=== PATIENT | male | born 1945 | race Caucasian/White ===

== ENCOUNTER 2024-09-15 16:39 | Inpatient (IN) ==
[2024-09-15 17:02] LABS: ABG O2 HGB 92.8 % (95-100); BEecf -14.6 (-2.0-3.0); COHb 1.9 (0.5-1.5); HCO3 11.8 (21-28); MetHb 0.4 (0-1.5); TCO2 12.5 (19-24); sO2 91.4 % (94-98); tHb 11.2 g/dl (11.7-17.4)
--- NOTE | 2024-09-15 17:02 | ED.PDOC ---
General ED Provider: Dr. ENE LUU DO Chief Complaint: Shortness of Air Stated Complaint: Patient is a frail 79-year-old male who was dropped off by family without any history without any oxygen and were given instructions to admit the patient to a swing bed or to hospice and they will be back tomorrow. Patient complains of back pain and is using his accessory muscles to breathe oxygen. Patient is at room air at 69 PaO2 it is unclear if this is accurate so an arterial blood gas will be required. Patient lives at home but was recently discharged from hospital in August and has a history of prostate cancer. We recently found out that the patient had fallen in front of the son-in-law therefore x-rays will also be ordered during this evaluation. Patient has a significant history of an ischemic stroke in 2021. Patient also has COPD, he is malnourished, emaciated, history of an elevated PSA but refused to follow-up. Possible prostate cancer and possibly found a pulmonary nodule. Also there is a nodule on the anterior fifth rib could possibly be metastatic lesion. Time Seen by Provider: 09/15/24 16:53 Mode of Arrival: Wheelchair Information Source: Patient, Family and EMT Exam Limitations: Physical impairment (Patient is short of breath and has problems saying more than a few words) Primary Care Provider: YAIR CRAFT PA-C Nursing and Triage Documentation Reviewed and Agree: Yes Does Patient Take Opioids?: No Is Patient Opioid Naive?: Yes What is Opioid Naive?: *Opioid Naive implies the patient is not already taking opioids or not chronically receiving opioids on a daily basis. *PRN dosing is not "usually" associated with tolerance. *Patients are at higher risk of over-sedation and aspiration. Is Patient Opioid Tolerant?: No What is Opioid Tolerant?: *Opioid Tolerance implies less than the expected response to an opioid. *Acquired tolerance is defined by the patient taking 60mg of oral morphine daily (or equianalgesic dose of another opioid) for 1 week or more. *Often associated with chronic pain. *May take more than usual dose to achieve desired pain control. 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 Not taking as of 08/26/23. No e/o fluid overload. Z86.39 - Personal history of other endocrine, nutritional and metabolic disease (ICD-10) History of fracture of right hip (~11/2022) refused surgery Z87.81 - Personal history of (healed) traumatic fracture (ICD-10) Ischemic stroke (~09/17/21) 09/17/21: CVA right basal ganglia w/involvement of right jimenes radiata and right internal capsule, per records from OSH; 08/26/23 - referral to neurology I63.9 - Cerebral infarction, unspecified (ICD-10) Family History FATHER Prostate cancer Mother Heart murmur Social History Smoking and tobacco status: Former smoker Alcohol intake: former Substance use type: marijuana Ellie/mormon: [employer] Seatbelt use: always Drives intoxicated or rides with intoxicated 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 Water heater temperature set < 120 degrees: Yes Working smoke detector in home: Yes Surgical History History of AAA (abdominal aortic aneurysm) repair (~12/09/22) infrarenal saccular AAA Z98.890 - Other specified postprocedural states (ICD-10) H/O eye surgery Cataract surgery - right Z98.890 - Other specified postprocedural states (ICD-10) H/O total cystectomy Z90.6 - Acquired absence of other parts of urinary tract (ICD-10) History of appendectomy Z90.49 - Acquired absence of other specified parts of digestive tract (ICD- 10) Physical Exam Physical Exam Appearance: Reports Ill-appearing Ill-appearing: Severe Pain Distress: Moderate Eyes: Reports JOHN, EOMI and Conjunctiva clear ENT: Reports Nose normal and Oropharynx normal Neck: Supple Respiratory: Reports Breath sounds clear, Breath sounds equal (Utilizing accessory muscles while taking deep inspiratory breaths) and Other (ABG shows hypoxemia with pO2 of 69 at room air and acidosis of 7.30 pH somewhat compensated. Patient using accessory muscles with deep inspiratory effort) Cardiovascular: Reports RRR and Pulses normal GI/: Reports Not Examined (History of elevated PSA but not investigated or treated due to patient's request) Musculoskeletal: Reports Normal strength (Symmetrical muscle wasting with emaciated skin and poor skin turgor), ROM intact and Other (Complains of diffuse pain of lumbar spine but no step-offs noted no bruising noted) Skin: Reports Dry (Poor skin turgor) and Other (Poor skin turgor with tenting due to volume depletion) Neurological: Reports Sensation intact, Motor intact, Cranial nerves intact, Alert and Oriented Psychiatric: Reports Affect appropriate Course Course 09/15/24 17:05 09/15/24 17:05 Orders, Labs, Meds: Lab Review 09/15/24 09/15/24 09/15/24 16:59 17:05 17:41 WBC 13.31 H RBC 3.43 L Hgb 11.7 L Hct 37.5 L MCV 109.3 H MCH 34.1 H MCHC 31.2 L RDW Coeff of Fermin 14.0 Plt Count 431 Immature Gran % (Auto) 1.7 Neut % (Auto) 73.6 Lymph % (Auto) 16.8 Tift % (Auto) 6.8 Eos % (Auto) 0.5 Baso % (Auto) 0.6 Neut # (Auto) 9.8 H Lymph # (Auto) 2.2 Tift # (Auto) 0.9 Eos # (Auto) 0.1 Baso # (Auto) 0.1 Immature Gran # (Auto) 0.2 Puncture Site L brach Base Excess -14.6 L O2 Saturation 91.4 L ABG pH 7.30 L ABG pCO2 24.0 L ABG pO2 69.0 L ABG HCO3 11.8 L ABG Total CO2 12.5 L Hemoglobin 0.4 Oxyhemoglobin 92.8 L Carboxyhemoglobin 1.9 H Total Hemoglobin 11.2 L FiO2 % 21.0 Sodium 139.2 Potassium 5.18 H Chloride 102.1 Carbon Dioxide 14.3 L Anion Gap 27.98 BUN 26.0 H Creatinine 1.33 H Estimated GFR (MDRD) 52.00 BUN/Creatinine Ratio 19.54 Glucose 153.0 H Lactic Acid 8.45 H Calcium 9.34 Total Creatine Kinase 61.8 Troponin I < 0.012 NT-Pro-B Natriuret Pep 1050 H D-Dimer 4150.21 H Influ A Molecular Assay Negative by naat Influ B Molecular Assay Negative by naat SARS CoV-2 RNA Rapid ARIADNA Negative Orders Category Date Time Status ADMIT OBSERVATION [PLACE PATIENT OBSERVATION] .TO ADMISSION 09/15/24 19:47 Active MEDSURG (NON-MONITORED BED) ABG DRAW REQUEST Stat CARDIO 09/15/24 16:53 Completed EKG-(ED ONLY) Stat CARDIO 09/15/24 17:04 Completed ED APPLY O2 .ONCE EMERGENCY 09/15/24 17:11 Active ED FINISHING RANGE OPERATOR APPLIED .ONCE EMERGENCY 09/15/24 17:11 Active ABG COOX Stat LAB 09/15/24 16:59 Completed BMP [BASIC METABOLIC PANEL] Stat LAB 09/15/24 17:05 Completed CBC W/ AUTO DIFF Stat LAB 09/15/24 17:05 Completed CPK [CREATINE KINASE] Stat LAB 09/15/24 17:05 Completed D-DIMER Stat LAB 09/15/24 17:05 Completed FLU A/B MOLECULAR Stat LAB 09/15/24 17:41 Completed LACTIC ACID Stat LAB 09/15/24 17:05 Completed NT-PROBNP(ED) Stat LAB 09/15/24 17:05 Completed SARS COV-2 RNA RAPID ARIADNA Stat LAB 09/15/24 17:41 Completed TROPONIN I Stat LAB 09/15/24 17:05 Completed UA [URINALYSIS C & S IF INDICATED] Stat LAB 09/15/24 17:06 Uncollected UA [URINALYSIS C & S IF INDICATED] Stat LAB 09/15/24 17:15 Uncollected Ceftriaxone 1 gm Vial [Rocephin 1 gm Vial] Meds 09/15/24 19:43 Discontinued 1 gm IVP ONCE ONE Sodium Chloride 0.9% [Sodium Chloride] 1,000 ml Meds 09/15/24 17:06 Discontinued IV BOLUS CERVICAL SPINE, 2 OR 3 VIEWS Stat RADS 09/15/24 18:22 Completed CHEST, 1V AP ONLY Stat RADS 09/15/24 16:57 Completed LUMBAR SPINE, 2 OR 3 VIEWS Stat RADS 09/15/24 18:22 Completed Medications Discontinued Medications Generic Name Dose Route Start Last Admin Trade Name Kai PRN Reason Stop Dose Admin Ceftriaxone Sodium 1 gm 09/15/24 19:43 09/15/24 19:54 Ceftriaxone 1 Gm Vial IVP 09/15/24 19:44 1 gm ONCE ONE Administration Sodium Chloride 1,000 mls @ 1,000 mls/hr 09/15/24 17:06 09/15/24 18:38 Sodium Chloride IV 09/15/24 18:05 Infused BOLUS ONE Infusion Vital Signs: Temp Pulse Resp BP Pulse Ox O2 Flow Rate 09/15/24 17:10 3 09/15/24 16:46 96.9 F L 129 H 26 H 113/70 70 L terpreter: Yelena Zheng, ([id number]) Boilermaker'S Assistant: YELENA ZHENG, (MPH) Report Date: 09/15/2024 19:02:00 Report Status: Final Begin of Report Content EXAM: XR CERVICAL SPINE. HISTORY: Neck pain. TECHNIQUE: Three views of the cervical spine. Frontal, lateral, and AP open-mouth odontoid. COMPARISON: None. FINDINGS: There is straightening of the cervical lordosis. There is no fracture. Multilevel degenerative disc disease, most notably in the lower cervical spine. The prevertebral soft tissues are normal. IMPRESSION: 1. No fracture or subluxation. Degenerative disc disease. Electronically Signed By: Yelena Zheng D.O. Signing Date: 2024-09-15 19:02 End of Report Content ======= port Date: 09/15/2024 19:02:00 Report Status: Final Begin of Report Content EXAM: LUMBAR SPINE TWO VIEW. HISTORY: Fall. Pain. COMPARISON: None. FINDINGS/IMPRESSION: Degenerative disc narrowing most prominent L5-S1. Lesser disc space narrowing at L2-3, L3-4 and L4-5. Endovascular stent graft is present over the aorta and iliac arteries. Facet arthropathy is present. No acute fracture. Electronically Signed By: Ibeth Limon M.D. Signing Date: 2024-09-15 19:02 terpreter: Ibeth Limon ([id number]) Boilermaker'S Assistant: IBETH LIMON (LCF) Report Date: 09/15/2024 17:40:00 Report Status: Final Begin of Report Content EXAM: FRONTAL VIEW OF THE CHEST. HISTORY: Shortness of breath. COMPARISON: None. FINDINGS: Lungs are hyperexpanded. Calcified granulomas are present on the right. Nodular like density over the anterior fifth rib which is indeterminate for calcification versus noncalcified nodule. Cardiac silhouette is normal. No organized infiltrate/consolidation. Discharge Plan Discharge Patient Disposition: ADMITTED INPATIENT Discharge Problem: Weight loss, Volume depletion Malnourished Qualifiers: Malnutrition type: protein-calorie malnutrition Protein-calorie malnutrition severity: moderate Qualified Code(s): E44.0 - Moderate protein-calorie malnutrition COPD (chronic obstructive pulmonary disease) Qualifiers: COPD type: COPD with acute exacerbation Qualified Code(s): J44.1 - Chronic obstructive pulmonary disease with (acute) exacerbation Did you review [place] MA[place] for ALL controlled substances?: Not Applicable ED Provider: ENE LUU Condition: Stable Physician Progress Note: This is a 79-year-old male who has been living at home and recently discharged from respite care. He requires oxygen supplementation which she has not been consistent for a year. Is a concern that he had an elevated PSA and never followed with this and now has a pulmonary nodule. Patient also has multiple myeloma. Patient becomes easily exacerbated no congestive heart failure but more of an exacerbation of COPD. His arterial blood gas showed a pH of 7.3 [id number] PO2 of 69 on room air with a bicarb of 11.8. There is a concern if he fell- patient states he did not fall- moves his legs and denies hip pain. So x-ray of his cervical, lumbar, and thoracic spine were done and are negative for any acute fractures or compression fracture or spondylolisthesis. Patient demonstrates chronic osteoarthritis. Patient's respiratory status is improved once IV fluids were administered. Patient will most likely require social psychologist and placement long-term in a correction. Patient is hemodynamically stable. Called the hospitalist Daniel Clark regarding admission for exacerbation of COPD, hypoxemia due to exacerbation of COPD, volume depletion due to dehydration with elevated BUN and creatinine, clinically severe turgor of skin, patient is acidotic due to hypoxemia poorly compensated.Patient is to be admitted to observation.
[2024-09-15 17:17] LABS: BASOPHILS # (AUTO) 0.1 K/uL (0-0.2); BASOPHILS % (AUTO) 0.6 % (0.0-3.0); EOSINOPHILS # (AUTO) 0.1 K/ul (0.0-0.7); EOSINOPHILS % (AUTO) 0.5 % (0.0-7.0); HEMATOCRIT 37.5 % (42.0-52.0); HEMOGLOBIN 11.7 g/dl (14.0-18.0); IMMATURE GRANULOCYTE # (AUTO) 0.2 (0.0-1.0); IMMATURE GRANULOCYTE % (AUTO) 1.7 % (0.0-5.0); LYMPHOCYTES # (AUTO) 2.2 K/uL (0.60-3.4); LYMPHOCYTES % (AUTO) 16.8 (10.0-50.0); MEAN CORPUSCULAR HEMOGLOBIN 34.1 pg (27.0-31.0); MEAN CORPUSCULAR HGB CONC 31.2 (31.8-35.4); MEAN CORPUSCULAR VOLUME 109.3 fl (80.0-94.0); MONOCYTES # (AUTO) 0.9 K/uL (0.4-2.0); MONOCYTES % (AUTO) 6.8 (0-10); NEUTROPHILS # (AUTO) 9.8 K/ul (2.0-6.9); NEUTROPHILS % (AUTO) 73.6 % (42.2-75.2); PLATELET COUNT 431 10^3/uL (140-440); RED BLOOD COUNT 3.43 10^6/ul (4.70-6.10); WHITE BLOOD COUNT 13.31 K/ul (4.2-10.2)
[2024-09-15 17:28] LABS: CALCIUM 9.34 mg/dL (8.4-10.2); CARBON DIOXIDE 14.3 mmol/L (22-30.0); CHLORIDE 102.1 mmol/L (98-107); CREATINE KINASE 61.8 U/L (55-170); CREATININE 1.33 mg/dL (0.60-1.10); POTASSIUM 5.18 mmol/L (3.5-5.1); SODIUM 139.2 mmol/L (134.5-145)
[2024-09-15] MEDS: SODIUM CHLORIDE 1,000 ML IV ONE (17:38)
[2024-09-15 17:40] LABS: TROPONIN I < 0.012 ng/ml (0.0000-0.120)
--- NOTE | 2024-09-15 17:45 | DI ---
EXAM: FRONTAL VIEW OF THE CHEST. HISTORY: Shortness of breath. COMPARISON: None. FINDINGS: Lungs are hyperexpanded. Calcified granulomas are present on the right. Nodular like density over t he anterior fifth rib which is indeterminate for calcification versus noncalcified nodule. Cardiac silhouette is normal. No organized infiltrate/consolidation. No visible effusion or pneumothorax. No acute osseous abnormality. IMPRESSION: 1. Emphysematous changes 2. Nodular opacities on the right at least one which is a granuloma. The second is indeterminate.
[2024-09-15 18:01] LABS: SARS COV-2 RNA RAPID NAAT NEGATIVE (NEGATIVE)
[2024-09-15 18:04] LABS: MOLECULAR FLU A NEGATIVE BY NAAT (NEGATIVE); MOLECULAR FLU B NEGATIVE BY NAAT (NEGATIVE)
--- NOTE | 2024-09-15 19:06 | DI ---
EXAM: XR CERVICAL SPINE. HISTORY: Neck pain. TECHNIQUE: Three views of the cervical spine. Frontal, lateral, and AP open-mouth odontoid. COMPARISON: None. FINDINGS: There is straightening of the cervical lordosis. There is no fracture. Multilevel degenerative disc disease, most notably in the lower cervical spine. The prevertebral soft tissues are normal. IMPRESSION: 1. No fracture or subluxation. Degenerative disc disease.
--- NOTE | 2024-09-15 19:06 | DI ---
EXAM: LUMBAR SPINE TWO VIEW. HISTORY: Fall. Pain. COMPARISON: None. FINDINGS/IMPRESSION: Degenerative disc narrowing most prominent L5-S1. Lesser disc space narrowing at L2-3, L3-4 and L4-5 . Endovascular stent graft is present over the aorta and iliac arteries. Facet arthropathy is prese nt. No acute fracture.
[2024-09-15] MEDS: ROCEPHIN 1 GM VIAL IVP ONE (19:54)
[2024-09-15] MEDS ORDERED: TYLENOL PO PRN (21:54)
[2024-09-15] MEDS: VISIPAQUE 320 MG/ML 100ML IVP ONE (22:15)
[2024-09-15 22:29] VITALS: BMI 13.7
[2024-09-15] MEDS: SODIUM CHLORIDE 1,000 ML IV SCH (23:01)
--- NOTE | 2024-09-15 23:01 | CT ---
EXAM: CTA OF THE PULMONARY ARTERIES WITH CONTRAST TECHNIQUE: CTA of the pulmonary arteries was performed with contrast. 2-D and 3-D reconstructions wer e performed. HISTORY: Shortness of breath. COMPARISON: 09/16/2023. FINDINGS: Pulmonary arteries: No pulmonary embolus detected. Lungs/pleura: Diffuse emphysematous changes. Pulmonary micronodule measuring 7.2 mm in the right low er lobe. Appears stable compared to a previous examination. A smaller micronodule measuring approxi mately 4 mm image 101 is also stable. Subpleural micronodule in the left upper lobe is stable in the interval. No pleural effusion.Atelectasis left lung base. Mediastinum: No adenopathy. Cardiovascular: No pericardial effusion. The ascending thoracic aorta measures up to 3.2 cm. Descend ing aorta is 3 cm. Chest wall/axillae/thoracic inlet: No mass or adenopathy. Imaged upper abdomen: Postoperative change from endovascular stent repair of an infrarenal abdominal aortic aneurysm. Renal cyst on the left. Mildly distended gallbladder. Adrenal hyperplasia bilater ally. Bones: No aggressive osseous lesion identified. IMPRESSION: 1. Emphysematous changes. 2. Stable pulmonary micronodules 3. Negative for pulmonary embolus. 4. Additional chronic changes as above. All CT scans are performed using dose optimization techniques as appropriate to the performed exam an d includes at least one of the following: Automated exposure control, adjustment of the mA and/or kV according to size, and the use of iterative reconstruction technique. All CT scans are performed using dose optimization techniques as appropriate to the performed exam an d include at least one of the following: Automated exposure control, adjustment of the mA and/or kV according t o size, and the use of iterative reconstruction technique.
[2024-09-16] MEDS: DUONEB NEB SCH (00:12)
[2024-09-16 05:42] LABS: BASOPHILS % (AUTO) 0.2 % (0.0-3.0); EOSINOPHILS % (AUTO) 0.1 % (0.0-7.0); HEMATOCRIT 33.6 % (42.0-52.0); IMMATURE GRANULOCYTE # (AUTO) 0.1 (0.0-1.0); IMMATURE GRANULOCYTE % (AUTO) 0.7 % (0.0-5.0); LYMPHOCYTES % (AUTO) 7.9 (10.0-50.0); MEAN CORPUSCULAR HEMOGLOBIN 34.7 pg (27.0-31.0); MEAN CORPUSCULAR HGB CONC 32.7 (31.8-35.4); MONOCYTES # (AUTO) 0.9 K/uL (0.4-2.0); MONOCYTES % (AUTO) 7.3 (0-10); NEUTROPHILS # (AUTO) 10.3 K/ul (2.0-6.9); NEUTROPHILS % (AUTO) 83.8 % (42.2-75.2); PLATELET COUNT 305 10^3/uL (140-440); RED BLOOD COUNT 3.17 10^6/ul (4.70-6.10); WHITE BLOOD COUNT 12.28 K/ul (4.2-10.2)
[2024-09-16 05:44] LABS: BILIRUBIN,URINE Negative (NEGATIVE); CLARITY,URINE Clear (CLEAR); COLOR,URINE Yellow (YELLOW); GLUCOSE, URINE (UA) Negative (NEGATIVE); KETONES,URINE 1+ (NEGATIVE); LEUKOCYTE ESTERASE ,URINE Negative (NEGATIVE); NITRITE,URINE Negative (NEGATIVE); PH,URINE 5.5 (5-9); PROTEIN,URINE 1+ (NEGATIVE); URINE, BLOOD Negative (NEGATIVE); UROBILINOGEN,URINE 0.2 (0.2)
[2024-09-16 06:02] LABS: ALANINE AMINOTRANSFERASE 19.7 U/L (0-50); ALBUMIN 3.95 g/dL (3.5-5.0); ALKALINE PHOSPHATASE 87.3 U/L (56-119); ASPARTATE AMINO TRANSFERASE 34.1 U/L (17-59); BILIRUBIN,TOTAL 0.55 mg/dL (0.2-1.3); BLOOD UREA NITROGEN 31.3 mg/dL (9-20); CALCIUM 8.94 mg/dL (8.4-10.2); CARBON DIOXIDE 18.1 mmol/L (22-30.0); CHLORIDE 103.1 mmol/L (98-107); CREATININE 1.29 mg/dL (0.60-1.10); GLUCOSE 85.7 mg/dL (74-106); POTASSIUM 4.68 mmol/L (3.5-5.1); SODIUM 137.9 mmol/L (134.5-145); TOTAL PROTEIN 7.42 g/dL (6.3-8.2)
[2024-09-16] MEDS: ZITHROMAX PO SCH (08:39)
--- NOTE | 2024-09-16 11:34 | PCM ---
Date of Service Date Seen by Provider: 09/16/24 Time Seen by Provider: 08:45 Admit Day/Time Admission Date: 09/15/24 Reason for Admission Chief Complaint: COPD EXACERBATION Hospital Provider Hospital Provider: BOBBI ORTIZ, [facility] Primary Care Physician Primary Care Physician: YAIR CRAFT PA-C History of Present Illness History of Present Illness: 79 yo male with pmh of CVA, prostate cancer, HLD, COPD, GERD, and macular degeneration presented to the ER for weakness and shortness of breath. Patient reports that he resides at his daughter's house and was taking a shower when he developed sudden onset of weakness, vision changes, and shortness of breath. Also states he had the urge to have a BM. Got out of the shower and was sitting on the toilet, then felt too weak and couldn't breathe. He then got down on all 4 extremities in the floor and this did not help and was unable to get back up. Upon arrival to the ER by EMS, patient was on NRB and O2 sat was found to be in the 70s, HR 126, and Respirations 26. Ddimer was found to be >4000, Creatinine elevated at 1.3 compared to baseline of 0.8-1.1, WBC 13, lactic of 8. Chest xray negative for acute findings. Blood cultures were not obtained, CTA not completed, and CT head not completed. Initially admitted to med/surg observation. Of note, patient reports metastatic prostate cancer but with review of imaging at other facilities unable to find supporting documentation of this. Also reported multiple myeloma but unsure if he has been officially diagnosed with this at this time. Discussed with patient discharge plans due to statements by someone regarding SNF placement. Patient is requesting placement due to family being unable to care for him 01/12. Discussed with rn social work at bedside. Requesting [facility] specificially. Case Discussed With Case Discussed With: Patient's case was discussed with the ER Physicians, Dr. Allen. [facility] Medical History Prostate CA mets to bone C61 - Malignant neoplasm of prostate (ICD-10) CVA (cerebral vascular accident) I63.9 - Cerebral infarction, unspecified (ICD-10) Dysphagia 12/03/22 BALLET TEACHER eval in ICU cleared for normal diet, no dysphagia noted; 08/25/13: s/p cva, declines BALLET TEACHER evaluation, try thickened liquids R13.10 - Dysphagia, unspecified (ICD-10) History of fluid overload (~11/2022) during ICU stay, d/c w/lasix. Not taking as of 08/26/23. No e/o fluid overload. Z86.39 - Personal history of other endocrine, nutritional and metabolic disease (ICD-10) History of fracture of right hip (~11/2022) refused surgery Z87.81 - Personal history of (healed) traumatic fracture (ICD-10) Ischemic stroke (~09/17/21) 09/17/21: CVA right basal ganglia w/involvement of right jimenes radiata and right internal capsule, per records from OSH; 08/26/23 - referral to neurology I63.9 - Cerebral infarction, unspecified (ICD-10) Surgical History History of AAA (abdominal aortic aneurysm) repair (~12/09/22) infrarenal saccular AAA Z98.890 - Other specified postprocedural states (ICD-10) H/O eye surgery Cataract surgery - right Z98.890 - Other specified postprocedural states (ICD-10) H/O total cystectomy Z90.6 - Acquired absence of other parts of urinary tract (ICD-10) History of appendectomy Z90.49 - Acquired absence of other specified parts of digestive tract (ICD-10) Family History FATHER Prostate cancer Mother Heart murmur Social History Smoking and tobacco status: Former smoker Alcohol intake: former Substance use type: marijuana Ellie/restorationism: ORTHODOXY Seatbelt use: always Drives intoxicated or rides with intoxicated lumber driver: No Water heater temperature set < 120 degrees: Yes Working smoke detector in home: Yes Allergies Allergies Allergy/AdvReac Type Severity Reaction Status Date / Time No Known Allergies Allergy Unverified 02/04/24 11:04 Current Medications Home Medications Acetaminophen (Acetaminophen 325 Mg Tablet) 650 mg PO Q4H PRN PRN Reason: Mild Pain Albuterol/Ipratropium (Ipratropium/Albuterol Vial.Neb) 3 ml NEB RTQ6H [facility] Last Admin: 09/16/24 11:28 Dose: 3 ml Azithromycin (Azithromycin 250 Mg Tablet) 500 mg PO DAILY [facility] Stop: 09/19/24 08:59 Last Admin: 09/16/24 08:39 Dose: 500 mg Sodium Chloride (Sodium Chloride) 1,000 mls @ 100 mls/hr IV .Q10H [facility] Last Admin: 09/16/24 07:29 Dose: 100 mls/hr CEFTRIAXONE/D5W 1 GM PREMIX (Rocephin 1 Gm/50 Ml D5w) 1 gm in 50 mls @ 100 mls/hr IV BEDTIME [facility] Stop: 09/19/24 20:59 albuterol sulfate 2.5 mg/3 mL (0.083 %) solution for nebulization 2.5 mg (3 mL) inhalation Q4-6H PRN chronic bronchitis #180 mL 12/15/23 [Rx Confirmed 09/15/24] albuterol sulfate 90 mcg/actuation aerosol inhaler 2 puff inhalation Q4-6H PRN shortness of breath or wheezing #8.5 grams 12/15/23 [Rx Confirmed 09/15/24] atorvastatin 40 mg tablet 20 mg PO QHS 09/15/24 [History Confirmed 09/15/24] budesonide 160 mcg-glycopyr 9 mcg-formot 4.8 mcg/actuation HFA inhaler (Breztri Aerosphere) 2 inh inhalation BID 09/15/24 [History Confirmed 09/15/24] cyclobenzaprine 10 mg tablet 10 mg PO 2XD 09/15/24 [History Confirmed 09/15/24] hydrocodone 5 mg-acetaminophen 325 mg tablet 0.5 tab PO BID 09/15/24 [History Confirmed 09/15/24] latanoprost 0.005 % eye drops 1 drp ophthalmic (eye) QPM 09/15/24 [History Confirmed 09/15/24] vit C 250 mg-vit E 90 mg-zinc 40 mg-copper 1 [id number] capsule (PreserVision AREDS-2) 1 tab PO BID 09/15/24 [History Confirmed 09/15/24] Opioid Naive vs. Tolerant Does Patient Take Opioids?: No Is Patient Opioid Naive?: Yes What is Opioid Naive?: *Opioid Naive implies the patient is not already taking opioids or not chronically receiving opioids on a daily basis. *PRN dosing is not "usually" associated with tolerance. *Patients are at higher risk of over-sedation and aspiration. Is Patient Opioid Tolerant?: No What is Opioid Tolerant?: *Opioid Tolerance implies less than the expected response to an opioid. *Acquired tolerance is defined by the patient taking 60mg of oral morphine daily (or equianalgesic dose of another opioid) for 1 week or more. *Often associated with chronic pain. *May take more than usual dose to achieve desired pain control. Review of Systems Constitutional: Reports Weakness Head: Reports Normocephalic Eyes: Reports Vision Changes Ears: Reports No symptoms Nose: Reports No symptoms Mouth: Reports No symptoms Throat: Reports No symptoms Cardiovascular: Reports No symptoms Respiratory: Reports Shortness of air Gastrointestinal: Reports No symptoms Genitourinary: Reports No Symptoms Musculoskeletal: Reports No symptoms Endocrine: Reports No symptoms Hematology: Reports No symptoms Immunology: Reports No symptoms Neurological: Reports No symptoms Psychiatric: Reports No symptoms Physical examination Most Recent Vital Signs: Most Recent Vital Signs Temperature 98.0 F 09/16/24 05:02 Temperature Source Temporal Artery Scan 09/16/24 05:02 Temperature Source Infrared 09/15/24 16:46 Pulse Rate 91 09/16/24 05:02 Respiratory Rate 20 09/16/24 05:02 Blood Pressure 139/91 H 09/16/24 05:02 Blood Pressure Mean 107 09/16/24 05:02 Blood Pressure Left Arm 139/90 09/15/24 20:54 Blood Pressure Location Left Arm 09/16/24 05:02 Blood Pressure Position Supine 09/16/24 05:02 O2 Sat by Pulse Oximetry 88 L 09/16/24 10:00 Oxygen Delivery Method Nasal Cannula 09/16/24 10:00 Oxygen Flow Rate 0.5 09/16/24 10:00 Height 5 ft 9 in 09/15/24 20:54 Weight 42.3 kg 09/15/24 20:54 Telemetry Type Remote Telemetry 09/16/24 07:00 Telemetry Monitoring Continues 09/16/24 07:00 Telemetry Heart Rate 81 09/16/24 07:00 EKG DC Interval 0.16 09/16/24 07:00 EKG QRS Interval 0.08 09/16/24 07:00 Telemetry Strip Reading SR 09/16/24 07:00 Appearance: Positive No Apparent Distress, Alert and Oriented x3, Ill-Appearing, Thin and Cachectic Skin: Positive Warm HEENT: Positive Normocephalic and PERRLA Neck: Positive Supple and Midline Trachea Chest/Lungs: Positive Symmetrical With Equal Breath Sounds and Clear to Auscultation Bilaterally (diminished) Heart: Positive RRR and Pulses Normal GI/: Positive Soft, Nontender, Bowel Sounds Normal and No Distention Musculoskeletal: Positive Not Examined Extremities: Positive Atrophy, Intact Peripheral Pulses, Stable Joints Without Laxity and Good ROM in All Joints Neurological: Positive Sensation Intact, Motor intact, Reflexes Intact, Alert, Oriented and Other (generalized weakness) Labs This Visit Labs This Visit: Labs This Visit 09/15/24 09/15/24 09/15/24 16:59 17:05 17:41 WBC 13.31 H RBC 3.43 L Hgb 11.7 L Hct 37.5 L MCV 109.3 H MCH 34.1 H MCHC 31.2 L RDW Coeff of Fermin 14.0 Plt Count 431 Immature Gran % (Auto) 1.7 Neut % (Auto) 73.6 Lymph % (Auto) 16.8 [place] % (Auto) 6.8 Eos % (Auto) 0.5 Baso % (Auto) 0.6 Neut # (Auto) 9.8 H Lymph # (Auto) 2.2 [place] # (Auto) 0.9 Eos # (Auto) 0.1 Baso # (Auto) 0.1 Immature Gran # (Auto) 0.2 Puncture Site L brach Base Excess -14.6 L O2 Saturation 91.4 L ABG pH 7.30 L ABG pCO2 24.0 L ABG pO2 69.0 L ABG HCO3 11.8 L ABG Total CO2 12.5 L Hemoglobin 0.4 Oxyhemoglobin 92.8 L Carboxyhemoglobin 1.9 H Total Hemoglobin 11.2 L FiO2 % 21.0 Sodium 139.2 Potassium 5.18 H Chloride 102.1 Carbon Dioxide 14.3 L Anion Gap 27.98 BUN 26.0 H Creatinine 1.33 H Estimated GFR (MDRD) 52.00 BUN/Creatinine Ratio 19.54 Glucose 153.0 H Lactic Acid 8.45 H Calcium 9.34 Total Bilirubin AST ALT Alkaline Phosphatase Total Creatine Kinase 61.8 Troponin I < 0.012 NT-Pro-B Natriuret Pep 1050 H Total Protein Albumin Globulin Albumin/Globulin Ratio Procalcitonin D-Dimer 4150.21 H Urine Color Urine Clarity Urine pH Ur Specific [place] Urine Protein Urine Glucose (UA) Urine Ketones Urine Blood Urine Nitrite Urine Bilirubin Urine Urobilinogen Ur Leukocyte Esterase Influ A Molecular Assay Negative by naat Influ B Molecular Assay Negative by naat SARS CoV-2 RNA Rapid ARIADNA Negative 09/15/24 09/16/24 09/16/24 21:43 04:50 05:30 WBC 12.28 H RBC 3.17 L Hgb 11.0 L Hct 33.6 L MCV 106.0 H MCH 34.7 H MCHC 32.7 RDW Coeff of Fermin 14.0 Plt Count 305 Immature Gran % (Auto) 0.7 Neut % (Auto) 83.8 H Lymph % (Auto) 7.9 L [place] % (Auto) 7.3 Eos % (Auto) 0.1 Baso % (Auto) 0.2 Neut # (Auto) 10.3 H Lymph # (Auto) 1.0 [place] # (Auto) 0.9 Eos # (Auto) 0.0 Baso # (Auto) 0.0 Immature Gran # (Auto) 0.1 Puncture Site Base Excess O2 Saturation ABG pH ABG pCO2 ABG pO2 ABG HCO3 ABG Total CO2 Hemoglobin Oxyhemoglobin Carboxyhemoglobin Total Hemoglobin FiO2 % Sodium 137.9 Potassium 4.68 Chloride 103.1 Carbon Dioxide 18.1 L Anion Gap 21.38 BUN 31.3 H Creatinine 1.29 H Estimated GFR (MDRD) 54.00 BUN/Creatinine Ratio 24.26 Glucose 85.7 D Lactic Acid 1.60 Calcium 8.94 Total Bilirubin 0.55 AST 34.1 ALT 19.7 Alkaline Phosphatase 87.3 Total Creatine Kinase Troponin I NT-Pro-B Natriuret Pep Total Protein 7.42 Albumin 3.95 Globulin 3.47 Albumin/Globulin Ratio 1.13 Procalcitonin 0.76 H 2.08 H D-Dimer Urine Color Yellow Urine Clarity Clear Urine pH 5.5 Ur Specific [place] 1.015 Urine Protein 1+ H Urine Glucose (UA) Negative Urine Ketones 1+ H Urine Blood Negative Urine Nitrite Negative Urine Bilirubin Negative Urine Urobilinogen 0.2 Ur Leukocyte Esterase Negative Influ A Molecular Assay Influ B Molecular Assay SARS CoV-2 RNA Rapid [facility]AD[facility] Imaging Imaging: EXAM: CT OF THE BRAIN WITHOUT CONTRAST FINDINGS: There is moderate generalized cerebral involutional change. No acute intracranial hemorrhage, extra-axial fluid collection, hydrocephalus, mass effect, or midline shift. The ventricles, cisterns and sulci are normal. Castro- white differentiation is maintained. There are moderate patchy areas of hypodensity in the periventricular white matter, nonspecific but most commonly encountered in the setting of chronic microvascular disease. The visualized paranasal sinuses and mastoid air cells are clear. The visualized portions of the globes and orbits appear normal. No acute calvarial abnormalities are seen. IMPRESSION: 1. No acute intracranial abnormality. 2. Involutional change of the brain and suspected sequelae of microvascular disease. EXAM: CTA OF THE PULMONARY ARTERIES WITH CONTRAST FINDINGS: Pulmonary arteries: No pulmonary embolus detected. Lungs/pleura: Diffuse emphysematous changes. Pulmonary micronodule measuring 7.2 mm in the right lower lobe. Appears stable compared to a previous examination. A smaller micronodule measuring approximately 4 mm image 101 is also stable. Subpleural micronodule in the left upper lobe is stable in the interval. No pleural effusion.Atelectasis left lung base. Mediastinum: No adenopathy. Cardiovascular: No pericardial effusion. The ascending thoracic aorta measures up to 3.2 cm. Descending aorta is 3 cm. Chest wall/axillae/thoracic inlet: No mass or adenopathy. Imaged upper abdomen: Postoperative change from endovascular stent repair of an infrarenal abdominal aortic aneurysm. Renal cyst on the left. Mildly distended gallbladder. Adrenal hyperplasia bilaterally. Bones: No aggressive osseous lesion identified. IMPRESSION: 1. Emphysematous changes. 2. Stable pulmonary micronodules 3. Negative for pulmonary embolus. 4. Additional chronic changes as above. EXAM: FRONTAL VIEW OF THE CHEST FINDINGS: Lungs are hyperexpanded. Calcified granulomas are present on the right. Nodular like density over the anterior fifth rib which is indeterminate for calcification versus noncalcified nodule. Cardiac silhouette is normal. No organized infiltrate/consolidation. No visible effusion or pneumothorax. No acute osseous abnormality. IMPRESSION: 1. Emphysematous changes 2. Nodular opacities on the right at least one which is a granuloma. The second is indeterminate EXAM: LUMBAR SPINE TWO VIEW. FINDINGS/IMPRESSION: Degenerative disc narrowing most prominent L5-S1. Lesser disc space narrowing at L2-3, L3-4 and L4-5. Endovascular stent graft is present over the aorta and iliac arteries. Facet arthropathy is present. No acute fracture. Review Statement Review Statement: I have independently reviewed and interpreted the labs/EKGs/imaging that were ordered by the ER provider. I have reviewed all outside records that are available currently in our EMR including imaging/notes/labs from previous visits. Plan Plan: 1. Acute Hypoxic Respiratory Failure in setting of COPD Exacerbation - wean oxygen as tolerated, nebs 2. COPD Exacerbation - rocephin, azith, nebs 3. Sepsis - met sepsis due to HR, RR, and white count, blood cultures not obtained ER but completed on med/surg, lactic 8, procal 2, no obvious source, chest CT and UA negative, no fever or other symptoms, trend procal, awaiting blood cultures 4. Lactic acidosis - trended down, based on description of episode questionable if patient had seizure 5. EVELYN - mild, baseline creatinine 0.8-1.1, NS@100mL/hr, avoid nephrotoxins/hypotension 6. Adenocarcinoma of the prostate - refused treatment, follows with Dr. Ramirez at [facility] 7. Weakness and debility - PT/OT 8. HLD - chronic, continue home medications DVT Prophylaxis: Ambulation Time Spent: Greater than 80 minutes spent with patient, 50% of the time spent with this patient was devoted to counseling and coordination of care. Advanced Care Plannin minutes spent discussing advance care planning. Disposition: Patient is requesting SNF placement due to family's inability to care for him at home. Feels that he is continuing to decline as the cancer progresses and needs more care than his family is able to provide. Requesting [facility]. Admit to: Med/Surg Observation -> admit to inpatient today due to >48 hours needed to care for patient Discussed Plan of Care with [] Medications Medication Orders: Medications Ordered Category Date Time Status Acetaminophen [Tylenol] Meds 09/15/24 21:54 Active 650 mg PO Q4H PRN Azithromycin [Zithromax] Meds 09/16/24 09:00 Active 500 mg PO DAILY Ceftriaxone/D5w 1 gm Premix [Rocephin 1 gm/50 ml D5w] Meds 09/16/24 21:00 Active 1 gm in 50 ml IV BEDTIME Ipratropium/Albuterol Neb [Duoneb] Meds 09/16/24 00:00 Active 3 ml NEB RTQ6H Sodium Chloride 0.9% [Sodium Chloride] 1,000 ml Meds 09/15/24 22:00 Active IV 100 mls/hr
--- NOTE | 2024-09-16 11:56 | CT ---
EXAM: CT OF THE BRAIN WITHOUT CONTRAST CLINICAL INDICATION: vision changes, falls COMPARISON: None. PROCEDURE: Contiguous axial tomographic sections were obtained from the skull base to the vertex. FINDINGS: There is moderate generalized cerebral involutional change. No acute intracranial hemorrhag e, extra-axial fluid collection, hydrocephalus, mass effect, or midline shift. The ventricles, cister ns and sulci are normal. Castro-white differentiation is maintained. There are moderate patchy areas of hypodensity in the periventricular white matter, nonspecific but m ost commonly encountered in the setting of chronic microvascular disease. The visualized paranasal sinuses and mastoid air cells are clear. The visualized portions of the andree bes and orbits appear normal. No acute calvarial abnormalities are seen. IMPRESSION: 1. No acute intracranial abnormality. 2. Involutional change of the brain and suspected sequelae of microvascular disease. All CT scans are performed using dose optimization techniques as appropriate to the performed exam an d include at least one of the following: Automated exposure control, adjustment of the mA and/or kV according t o size, and the use of iterative reconstruction technique.
--- NOTE | 2024-09-16 12:55 | RS.PTINEVL ---
Subjective Patient information Date of Evaluation: 09/16/24 Date of Arrival on Unit: 09/15/24 Admitted From:: Emergency Dept Diagnosis: COPD exacerbation, malnourished Usual Living Arrangement: With Others Living Arrangement Comments: pt lives with dtr and son in law Home Environment: House Medical History: CVA/TIA, COPD, Arthritis and Cancer (prostate CA w mets) LATEX ALLERGY?: No Surgical History Comments:: AAA repair, total cystectomy, appey Medications: see chart Subjective Information/ Patient Comments:: pt states that he is weak. States he had episode where he had to get into floor because of feeling faint and could not get back up. Level of function Prior to this admission, the patient could do the following:: Independent Selfcare, Independent ADL's and Independent Ambulation Abilities prior to this admission: pt amb with rollator Current Level of Function: Partially Dependent Current Equipment Used at Home: NEBULIZER; WALKER Interventions Objective Patient Orientation: Person, Place and Situation Current Interventions: Oxygen (1 liter ) and Telemetry Observation: pt is very frail Range of Motion ROM Right Upper Extremity AROM: WFL's Left Upper Extremity AROM: WFL's Right Lower Extremity AROM: WFL's Left Lower Extremity AROM: WFL's Muscle Strength Muscle Strength Right Upper Extremity: Mild Weakness (grossly 4/5 ) Left Upper Extremity: Mild Weakness (grossly 4/5 ) Right Lower Extremity: Mild Weakness (hip flex 4-/5, knee flex 4-/5, ext 4/5, ankle 4/5) Left Lower Extremity: Mild Weakness (hip flex 4-/5, knee flex 4-/5, ext 4/5, ankle 4/5) Sensation Sensation Right Upper Extremity: Intact/Normal Left Upper Extremity: Intact/Normal Right Lower Extremity: Intact/Normal Left Lower Extremity: Intact/Normal Palpation Palpation Findings: None/Normal Balance Sitting Balance and Reactions Static Sitting Balance: Good (good-) Dynamic Sitting Balance: Fair Standing Balance and Reactions Static Standing Balance: Poor Dynamic Standing Balance: Poor Standing Equilibrium Reactions: Delayed Left and Delayed Right Standing Protective Reactions: Delayed Left and Delayed Right Functional Mobility Bed Mobility Rolling R/L: CGA Supine to Sit: CGA Transfers Sit to Stand: CGA Stand to Sit: CGA Safety Awareness Safety Awareness: Fair EVER INDEX SCORE: n/a Ambulation Ambulation Assistive Device Used: Rollator Orthotic/Prosthetic Device: No Distance: 25ft Assistance needed with Ambulation: CGA Gait Deviations: Forward posture and Short stride Ambulation Comments: increased lat sway Factors Affecting Ambulation: Decreased Balance, Weakness, Decreased Coordination, Decreased Safety and Limited Endurance Treatment time Units charged Gait trainin Time with patient Length of Evaluation: 18 Total treatment time: 29 Patient Education Education Patient Education: Activity Modification and Education of Plan of Care Teaching Recipient: Patient Teaching Methods: Discussion Comments: discussion regarding POC and dc planning Assessment Assessment Problem List:: Decreased level of function, Requires training/education, Decreased safety/Risk of falls, Weakness and Cognitive status limits abilities Rehab Potential: Good Further Therapy Indicated?: Yes Candidate for Swing Bed for Therapy Services?: Feel pt may require LTC and plan is to go to LTC after dc. Evaluation Complexity: HISTORY: Medium, EXAM OF BODY SYSTEMS: Medium, CLINICAL PRESENTATION: Medium and CLINICAL DECISION MAKING: Medium Patient's Goal(s): Get a little stronger Short Term Goals GOAL #1: pt demonstrate rolling and scooting to edge of bed. Goal to be met by: 09/19/24 GOAL #2: Transfer sup to/from sit SBA Goal to be met by: 09/19/24 GOAL #3: Transfer sit to/from stand SBA Goal to be met by: 09/19/24 GOAL #4: pt amb 75ft with rollator with CGA to SBA Goal to be met by: 09/19/24 GOAL #5: Improve BLE strength 4 to 4+/5 Goal to be met by: 09/19/24 Technical Testing Engineer Goals GOAL #1: Transfer sup to/from sit to/from stand SBA to independent. Goal to be met by: 09/21/24 GOAL #2: pt amb with rollator functional household distances with SBA Goal to be met by: 09/21/24 GOAL #3: Improve dyn stand balance fair- Goal to be met by: 09/21/24 Plan Plan of Care: Therapeutic EX and Therapeutic Activity Other:: gait training Frequency of Treatment: 1-2 X day, as tolerated Duration of Treatment: 5 days Anticipated [facility]charge Dest[facility] Treatment Diagnosis (ICD 10 Codes): impaired balance R 26.81 gait difficulty R 26.2 weakness M62.81 Has the Physician been added for Co-signature?: Yes
--- NOTE | 2024-09-16 14:32 | RS.OTINEVL ---
Subjective Patient information Date of Evaluation: 09/16/24 Date of Arrival on Unit: 09/15/24 Admitted From:: Emergency Dept Diagnosis: Prostate adenocarcinoma, neuropathy, hearing loss, COPD PRECAUTIONS: Fall risk Usual Living Arrangement: With Others Living Arrangement Comments: pt lives with dtr and son in law. Pt feels that he needs to go to [place] and live because of the tension. Home Environment: House Medical History: CVA/TIA, COPD, Arthritis and Cancer (prostate CA w mets) Medical History Comments:: COPD, Prostate Adenocarcinoma, neuropathy, hearing loss, COPD, back pain LATEX ALLERGY?: No Surgical History Comments:: AAA repair, total cystectomy, appey Medications: see chart Subjective Information/ Patient Comments:: "I don't want things to blow up but there is tension between my son in-law and me." Level of function Prior to this admission, the patient could do the following:: Independent Selfcare, Independent ADL's and Independent Ambulation Abilities prior to this admission: Pt has started to have difficulty with urination and having accidents when trying to stand and urinate. Sometimes pt has accidents with bowels as well. Pt is requiring help and the family is limiting his space in the home according to him. Current Level of Function: Partially Dependent Comments: Pt is able to use a urinal and not make much mess. Pt has a difficult time standing and urinating and not getting it everywhere. Pt can feed himself. Pt is able to stand but is weak. Pt is so thin. Current Equipment Used at Home: NEBULIZER; WALKER Pain Assessment Pain Pain Score: 0 Interventions Objective Patient Orientation: Person, Place and Situation Observation: Pt wearing 1 L of O2. Pt able to complete sit to stand and had full AROM of BUE. Interventions ROM Right Upper Extremity AROM: WFL's Left Upper Extremity AROM: WFL's Strength Right Upper Extremity: Mild Weakness Left Upper Extremity: Mild Weakness Sensation Right Upper Extremity: Intact/Normal Left Upper Extremity: Intact/Normal Balance Standing Balance Static Standing Balance: Poor Dynamic Standing Balance: Poor ADL Skills Self Feeding Self Feeding: Independent Grooming Grooming: Min Assist Grooming Set-up: Standing Bathing Bathing UE: Min Assist Bathing LE: Min Assist Bathing Set-up: Shower Dressing Dressing UE: Independent Dressing LE: Min Assist Toilet Management Toilet Hygiene: Min Assist (Pt has accidents when standing to urinate.) Toilet Clothing Management: Independent Functional Mobility Bed Mobility Rolling R/L: Independent Scooting: Independent Supine to Sit: Independent Sit to Supine: Independent Transfers Sit to Stand: CGA Stand to Sit: CGA Stand Pivot Transfers: CGA Ambulation Weight Bearing Status: FWB Assistance needed with Ambulation: CGA Safety Awareness Safety Awareness: Fair EVER INDEX SCORE: . Additional Treatment Performed Time with patient Length of Evaluation: 23 Total treatment time: 23 Activities Patient Interests:: Watching Television and Visiting/Socializing Patient Education Patient Education: Education of Plan of Care Teaching Recipient: Patient Teaching Methods: Discussion Assessment Problem List:: Decreased level of function, Requires training/education, Decreased safety/Risk of falls and Weakness Rehab Potential: Fair Further Therapy Indicated?: Yes Evaluation Complexity: HISTORY: Medium, EXAM OF BODY SYSTEMS: Medium and CLINICAL DECISION MAKING: Medium Patient's Goal(s): To be able to go to [place] and not be a burden to the family. Short Term Goals Goals GOAL 1: Pt to be I with urinal without accidents. Goal to be met by: 09/20/24 GOAL 2: Pt to increase BUE strength to 4+/5. Goal to be met by: 09/20/24 GOAL 3: Pt to be Indep. with grooming at sink. Goal to be met by: 09/20/24 Title 1 Tutor Goals GOAL 1: Pt to be Indep. with ADLs. Goal to be met by: 09/21/24 GOAL 2: Pt to increase BUE strength to 4+/5. Goal to be met by: 09/21/24 Goal to be met by: 09/21/24 Plan Plan of Care: Therapeutic EX, Therapeutic Activity and Self-Care/Home Management Frequency of Treatment: 1-2 X day, as tolerated Duration of Treatment: 5 days Anticipated [facility] Treatment Diagnosis (ICD 10 Codes): Z74.1 Need for assistance with personal care, weakness R53.1, Impaired bal. R26.81 Has the Physician been added for Co-signature?: Yes
[2024-09-16] MEDS: ROCEPHIN 1 GM/50 ML D5W 1 GM/50 ML BAG IV SCH (21:06)
[2024-09-17 05:26] LABS: BASOPHILS % (AUTO) 0.3 % (0.0-3.0); EOSINOPHILS # (AUTO) 0.1 K/ul (0.0-0.7); EOSINOPHILS % (AUTO) 1.3 % (0.0-7.0); HEMATOCRIT 29.1 % (42.0-52.0); HEMOGLOBIN 9.2 g/dl (14.0-18.0); IMMATURE GRANULOCYTE # (AUTO) 0.1 (0.0-1.0); IMMATURE GRANULOCYTE % (AUTO) 0.5 % (0.0-5.0); LYMPHOCYTES # (AUTO) 1.1 K/uL (0.60-3.4); LYMPHOCYTES % (AUTO) 10.3 (10.0-50.0); MEAN CORPUSCULAR HEMOGLOBIN 34.3 pg (27.0-31.0); MEAN CORPUSCULAR HGB CONC 31.6 (31.8-35.4); MEAN CORPUSCULAR VOLUME 108.6 fl (80.0-94.0); MONOCYTES # (AUTO) 1.2 K/uL (0.4-2.0); MONOCYTES % (AUTO) 10.6 (0-10); NEUTROPHILS # (AUTO) 8.4 K/ul (2.0-6.9); PLATELET COUNT 290 10^3/uL (140-440); RDW COEFFICIENT OF VARIATION 14.4 % (11.6-14.8); RED BLOOD COUNT 2.68 10^6/ul (4.70-6.10); WHITE BLOOD COUNT 10.91 K/ul (4.2-10.2)
[2024-09-17 05:39] LABS: ALANINE AMINOTRANSFERASE 16.9 U/L (0-50); ALBUMIN 3.15 g/dL (3.5-5.0); ALKALINE PHOSPHATASE 73.4 U/L (56-119); ASPARTATE AMINO TRANSFERASE 35.3 U/L (17-59); BILIRUBIN,TOTAL 0.3 mg/dL (0.2-1.3); BLOOD UREA NITROGEN 29.4 mg/dL (9-20); CALCIUM 8.06 mg/dL (8.4-10.2); CARBON DIOXIDE 20.3 mmol/L (22-30.0); CHLORIDE 107.9 mmol/L (98-107); CREATININE 1.08 mg/dL (0.60-1.10); GLUCOSE 115.3 mg/dL (74-106); POTASSIUM 4.06 mmol/L (3.5-5.1); TOTAL PROTEIN 6.16 g/dL (6.3-8.2)
--- NOTE | 2024-09-17 10:25 | PCM.PROG ---
Date/Time Seen Date Seen by Provider: 09/17/24 Time Seen by Provider: 09:30 Provider Provider: BOBBI ORTIZ, [facility] Chief Complaint Chief Complaint: COPD EXACERBATION Subjective Subjective: States he is having difficulties urinating and incontinence. Only dribbling at times. Feeling better breathing jaramillo today. Objective Appearance: Positive No Apparent Distress, Alert and Oriented x3, Ill-Appearing, Thin and Cachectic Chest/Lungs: Positive Symmetrical With Equal Breath Sounds and Clear to Auscultation Bilaterally; Negative Rales, Rhonci or Wheezes Heart: Positive RRR and Pulses Normal; Negative Murmur, Irregular Rhythm, Tachycardia or Bracycardia GI/: Positive Soft, Nontender, Bowel Sounds Normal and No Distention Musculoskeletal: Positive Not Examined Neurological: Positive Sensation Intact, Motor intact, Reflexes Intact, Alert, Oriented and Other (generalized weakness) Vital Signs Vital Signs: Vital Signs: Last 24 Hours 09/16/24 13:00 09/16/24 14:00 09/16/24 14:40 Temperature 97.4 F L Temperature Source Temporal Artery Scan Pulse Rate 80 Respiratory Rate 16 Blood Pressure 136/73 Blood Pressure Mean 94 Blood Pressure Location Right Arm Blood Pressure Position O2 Sat by Pulse Oximetry 94 L 100 Oxygen Delivery Method Room Air Nasal Cannula Oxygen Flow Rate 1 Telemetry Type Remote Telemetry Telemetry Monitoring Continues Telemetry Heart Rate 89 EKG MS Interval 0.16 EKG QRS Interval 0.06 Telemetry Strip Reading SR 09/16/24 19:00 09/16/24 20:00 09/16/24 20:00 Temperature Temperature Source Pulse Rate Respiratory Rate Blood Pressure Blood Pressure Mean Blood Pressure Location Blood Pressure Position O2 Sat by Pulse Oximetry 97 Oxygen Delivery Method Room Air Nasal Cannula Oxygen Flow Rate 2 Telemetry Type Remote Telemetry Telemetry Monitoring Continues Telemetry Heart Rate 94 EKG MS Interval 0.15 EKG QRS Interval 0.04 L Telemetry Strip Reading SR 09/16/24 20:00 09/16/24 22:00 09/17/24 01:00 Temperature 98.3 F Temperature Source Temporal Artery Scan Pulse Rate 83 Respiratory Rate 20 Blood Pressure 126/72 Blood Pressure Mean 90 Blood Pressure Location Right Arm Blood Pressure Position Supine O2 Sat by Pulse Oximetry 99 Oxygen Delivery Method Nasal Cannula Nasal Cannula Oxygen Flow Rate 2 2 Telemetry Type Remote Telemetry Telemetry Monitoring Continues Telemetry Heart Rate 91 EKG MS Interval 0.18 EKG QRS Interval 0.05 L Telemetry Strip Reading SR 09/17/24 05:03 09/17/24 05:07 09/17/24 07:00 Temperature 98.6 F Temperature Source Temporal Artery Scan Pulse Rate 78 Respiratory Rate 18 Blood Pressure 171/95 H Blood Pressure Mean 120 Blood Pressure Location Right Arm Blood Pressure Position Standing O2 Sat by Pulse Oximetry 99 94 L Oxygen Delivery Method Nasal Cannula Nasal Cannula Oxygen Flow Rate 1.5 2 Telemetry Type Remote Telemetry Telemetry Monitoring Continues Telemetry Heart Rate 80 EKG MS Interval 0.14 EKG QRS Interval 0.08 Telemetry Strip Reading SR 09/17/24 08:00 09/17/24 09:45 Temperature Temperature Source Pulse Rate Respiratory Rate Blood Pressure Blood Pressure Mean Blood Pressure Location Blood Pressure Position O2 Sat by Pulse Oximetry 100 Oxygen Delivery Method Room Air Nasal Cannula Oxygen Flow Rate 1.5 Telemetry Type Telemetry Monitoring Telemetry Heart Rate EKG MS Interval EKG QRS Interval Telemetry Strip Reading Lab Results Lab Results: Lab Results: Last 24 Hours 09/17/24 05:06 WBC 10.91 H RBC 2.68 L Hgb 9.2 L Hct 29.1 L MCV 108.6 H MCH 34.3 H MCHC 31.6 L RDW Coeff of Fermin 14.4 Plt Count 290 Immature Gran % (Auto) 0.5 Neut % (Auto) 77.0 H Lymph % (Auto) 10.3 [place] % (Auto) 10.6 H Eos % (Auto) 1.3 Baso % (Auto) 0.3 Neut # (Auto) 8.4 H Lymph # (Auto) 1.1 [place] # (Auto) 1.2 Eos # (Auto) 0.1 Baso # (Auto) 0.0 Immature Gran # (Auto) 0.1 Sodium 140.0 Potassium 4.06 Chloride 107.9 H Carbon Dioxide 20.3 L Anion Gap 15.86 BUN 29.4 H Creatinine 1.08 Estimated GFR (MDRD) 66.00 BUN/Creatinine Ratio 27.22 Glucose 115.3 H Calcium 8.06 L Total Bilirubin 0.30 AST 35.3 ALT 16.9 Alkaline Phosphatase 73.4 Total Protein 6.16 L Albumin 3.15 L Globulin 3.01 Albumin/Globulin Ratio 1.04 Procalcitonin 1.57 H Additional Comments Additional Comments: I have independently reviewed and interpreted the labs/EKGs/imaging ordered during this hospital stay. I have reviewed outside records that are available in our EMR that pertain to medical stay including imaging/notes/labs from previous visits. Active Medications Active Medications: Medications Generic Name Dose Route Start Last Admin Trade Name Freq PRN Reason Stop Dose Admin Acetaminophen 650 mg 09/15/24 21:54 Acetaminophen 325 Mg Tablet PO Q4H PRN Mild Pain Albuterol/Ipratropium 3 ml 09/16/24 00:00 09/17/24 05:06 Ipratropium/Albuterol Vial.Neb NEB 3 ml RTQ6H TERESSA Administration Azithromycin 500 mg 09/16/24 09:00 09/17/24 08:37 Azithromycin 250 Mg Tablet PO 09/19/24 08:59 500 mg DAILY TERESSA Administration Sodium Chloride 1,000 mls @ 100 mls/hr 09/15/24 22:00 09/17/24 01:01 Sodium Chloride IV 100 mls/hr .Q10H TERESSA Administration CEFTRIAXONE/D5W 1 GM PREMIX 1 gm in 50 mls @ 100 mls/hr 09/16/24 21:00 09/16/24 21:06 Rocephin 1 Gm/50 Ml D5w IV 09/19/24 20:59 100 mls/hr BEDTIME TERESSA Administration Plan Plan: 1. Acute Hypoxic Respiratory Failure in setting of COPD Exacerbation - Improving, wean oxygen as tolerated, nebs 2. COPD Exacerbation - rocephinregisith, nebs 3. Sepsis - met sepsis due to HR, RR, and white count, blood cultures not obtained ER but completed on med/surg, lactic 8, procal 2, no obvious source, chest CT and UA negative, no fever or other symptoms, trend procal, blood cultu res neg x 24 hours 4. Lactic acidosis - trended down, based on description of episode questionable if patient had seizure 5. EVELYN - Resolved, stop fluids today 6. Adenocarcinoma of the prostate - refused treatment, follows with Dr. Ramirez at [facility], experiencing urinary retention >400 in bladder post void, anchor Ashley de la o to follow 7. Weakness and debility - PT/OT 8. HLD - chronic, continue home medications DVT Prophylaxis: Ambulation Dispo: Awaiting acceptance from [facility]. Anticipate discharge Thursday. Review Statement Review Statement: I have personally discussed and reviewed the patient's visit/currently labs/imaging/decision making with Dr. French, my supervising attending. Greater that 50 minutes spent with patient, 50% of the time spent with this patient was devoted to counseling and coordination of care.
[2024-09-17] MEDS ORDERED: FLEXERIL PO PRN (10:43)
[2024-09-17] MEDS ORDERED: NORCO 5-325 PO PRN (10:43)
[2024-09-17] MEDS: SPIRIVA IH SCH (11:23)
[2024-09-17] MEDS: XALATAN EACHEYE SCH (17:34)
[2024-09-17] MEDS: LIPITOR PO SCH (20:38)
[2024-09-17] MEDS: SYMBICORT 160-4.5 MCG INHALER IH SCH (20:38)
[2024-09-17] MEDS ORDERED: NON-FORMULARY MEDICATION (Budesonide-Glycopyr-Formoterol [Breztri Aerosphere] 160-9-4.8 mc IH SCH (21:00)
[2024-09-18 06:29] LABS: BASOPHILS # (AUTO) 0.1 K/uL (0-0.2); BASOPHILS % (AUTO) 0.5 % (0.0-3.0); EOSINOPHILS # (AUTO) 0.2 K/ul (0.0-0.7); EOSINOPHILS % (AUTO) 1.3 % (0.0-7.0); HEMATOCRIT 28.4 % (42.0-52.0); HEMOGLOBIN 9.2 g/dl (14.0-18.0); IMMATURE GRANULOCYTE % (AUTO) 0.3 % (0.0-5.0); LYMPHOCYTES # (AUTO) 1.2 K/uL (0.60-3.4); LYMPHOCYTES % (AUTO) 10.3 (10.0-50.0); MEAN CORPUSCULAR HEMOGLOBIN 34.1 pg (27.0-31.0); MEAN CORPUSCULAR HGB CONC 32.4 (31.8-35.4); MEAN CORPUSCULAR VOLUME 105.2 fl (80.0-94.0); MONOCYTES # (AUTO) 1.3 K/uL (0.4-2.0); MONOCYTES % (AUTO) 10.9 (0-10); NEUTROPHILS # (AUTO) 9.2 K/ul (2.0-6.9); NEUTROPHILS % (AUTO) 76.7 % (42.2-75.2); PLATELET COUNT 300 10^3/uL (140-440); RDW COEFFICIENT OF VARIATION 14.5 % (11.6-14.8)
[2024-09-18 06:41] LABS: ALANINE AMINOTRANSFERASE 15.1 U/L (0-50); ALBUMIN 3.05 g/dL (3.5-5.0); ALKALINE PHOSPHATASE 75.7 U/L (56-119); ASPARTATE AMINO TRANSFERASE 25.5 U/L (17-59); BILIRUBIN,TOTAL 0.29 mg/dL (0.2-1.3); BLOOD UREA NITROGEN 20.2 mg/dL (9-20); CALCIUM 8.28 mg/dL (8.4-10.2); CARBON DIOXIDE 20.9 mmol/L (22-30.0); CHLORIDE 103.3 mmol/L (98-107); CREATININE 0.96 mg/dL (0.60-1.10); GLUCOSE 106.9 mg/dL (74-106); POTASSIUM 4.43 mmol/L (3.5-5.1); SODIUM 134.7 mmol/L (134.5-145); TOTAL PROTEIN 6.06 g/dL (6.3-8.2)
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
[2024-09-18] MEDS: CEFPODOXIME PROXETIL PO SCH (21:02)
[2024-09-19 05:36] LABS: BASOPHILS % (AUTO) 0.4 % (0.0-3.0); EOSINOPHILS # (AUTO) 0.2 K/ul (0.0-0.7); EOSINOPHILS % (AUTO) 1.6 % (0.0-7.0); HEMATOCRIT 28.5 % (42.0-52.0); HEMOGLOBIN 9.3 g/dl (14.0-18.0); IMMATURE GRANULOCYTE % (AUTO) 0.3 % (0.0-5.0); LYMPHOCYTES # (AUTO) 1.8 K/uL (0.60-3.4); LYMPHOCYTES % (AUTO) 16.5 (10.0-50.0); MEAN CORPUSCULAR HEMOGLOBIN 34.3 pg (27.0-31.0); MEAN CORPUSCULAR HGB CONC 32.6 (31.8-35.4); MEAN CORPUSCULAR VOLUME 105.2 fl (80.0-94.0); MONOCYTES # (AUTO) 0.9 K/uL (0.4-2.0); MONOCYTES % (AUTO) 8.3 (0-10); NEUTROPHILS # (AUTO) 8.1 K/ul (2.0-6.9); NEUTROPHILS % (AUTO) 72.9 % (42.2-75.2); PLATELET COUNT 360 10^3/uL (140-440); RDW COEFFICIENT OF VARIATION 14.3 % (11.6-14.8); RED BLOOD COUNT 2.71 10^6/ul (4.70-6.10); WHITE BLOOD COUNT 11.04 K/ul (4.2-10.2)
[2024-09-19 05:49] LABS: ALANINE AMINOTRANSFERASE 15.5 U/L (0-50); ALBUMIN 3.05 g/dL (3.5-5.0); ALKALINE PHOSPHATASE 71.2 U/L (56-119); ASPARTATE AMINO TRANSFERASE 24.1 U/L (17-59); BILIRUBIN,TOTAL 0.38 mg/dL (0.2-1.3); CALCIUM 8.39 mg/dL (8.4-10.2); CARBON DIOXIDE 21.1 mmol/L (22-30.0); CHLORIDE 102.4 mmol/L (98-107); GLUCOSE 95.5 mg/dL (74-106); POTASSIUM 4.46 mmol/L (3.5-5.1); SODIUM 133.8 mmol/L (134.5-145); TOTAL PROTEIN 6.12 g/dL (6.3-8.2)
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
[2024-09-19] MEDS: LACTATED RINGERS 1,000 ML IV ONE (16:00)
[2024-09-19] MEDS: SOLU-MEDROL 40 MG IVP SCH (17:49)
[2024-09-19] MEDS: ZOFRAN SDV IVP PRN (21:24)
[2024-09-20 05:27] LABS: BASOPHILS % (AUTO) 0.1 % (0.0-3.0); HEMATOCRIT 27.6 % (42.0-52.0); IMMATURE GRANULOCYTE % (AUTO) 0.4 % (0.0-5.0); LYMPHOCYTES # (AUTO) 0.3 K/uL (0.60-3.4); MEAN CORPUSCULAR HEMOGLOBIN 34.1 pg (27.0-31.0); MEAN CORPUSCULAR HGB CONC 32.6 (31.8-35.4); MEAN CORPUSCULAR VOLUME 104.5 fl (80.0-94.0); MONOCYTES # (AUTO) 0.2 K/uL (0.4-2.0); MONOCYTES % (AUTO) 1.6 (0-10); NEUTROPHILS # (AUTO) 9.3 K/ul (2.0-6.9); NEUTROPHILS % (AUTO) 94.9 % (42.2-75.2); PLATELET COUNT 393 10^3/uL (140-440); RDW COEFFICIENT OF VARIATION 14.2 % (11.6-14.8); RED BLOOD COUNT 2.64 10^6/ul (4.70-6.10); WHITE BLOOD COUNT 9.77 K/ul (4.2-10.2)
[2024-09-20 05:47] LABS: ALANINE AMINOTRANSFERASE 20.1 U/L (0-50); ALBUMIN 3.23 g/dL (3.5-5.0); ASPARTATE AMINO TRANSFERASE 25.9 U/L (17-59); BILIRUBIN,TOTAL 0.21 mg/dL (0.2-1.3); CALCIUM 8.55 mg/dL (8.4-10.2); CARBON DIOXIDE 26.3 mmol/L (22-30.0); CHLORIDE 99.1 mmol/L (98-107); CREATININE 1.03 mg/dL (0.60-1.10); GLUCOSE 148.6 mg/dL (74-106); POTASSIUM 4.94 mmol/L (3.5-5.1); SODIUM 135.3 mmol/L (134.5-145); TOTAL PROTEIN 6.3 g/dL (6.3-8.2)
[2024-09-20] MEDS: REGLAN IVP PRN (08:46)
[2024-09-20] MEDS: PROTONIX IVP SCH (08:49)
[2024-09-20] MEDS: PEPCID PO SCH (08:50)
--- NOTE | 2024-09-20 11:45 | PCM.PROG ---
Date/Time Seen Date Seen by Provider: 09/20/24 Time Seen by Provider: 08:30 Provider Provider: OLGA ADAMES PA-C, [facility] Chief Complaint Chief Complaint: COPD EXACERBATION Subjective Subjective: Patient overall does not feel well. Feeling very nauseated. Disappointed about not being able to eat breakfast. Improved with IV medications. Discussed his options after his skilled rehab was denied by insurance. We spent a lot of time talking about hospice. He feels hospice is appropriate for him and would like to pursue it. Objective Appearance: Positive No Apparent Distress, Alert and Oriented x3, Ill-Appearing, Thin, Cachectic and Other (frail) Chest/Lungs: Positive Symmetrical With Equal Breath Sounds and Clear to Auscultation Bilaterally; Negative Rales, Rhonci or Wheezes Heart: Positive RRR and Pulses Normal GI/: Positive Soft, Nontender, Bowel Sounds Normal and No Distention Musculoskeletal: Positive Not Examined Neurological: Positive Sensation Intact, Motor intact, Alert, Oriented and Other (generalized weakness) Vital Signs Vital Signs: Vital Signs: Last 24 Hours 09/19/24 12:00 09/19/24 12:05 09/19/24 13:00 Temperature Temperature Source Pulse Rate 100 120 H Respiratory Rate Blood Pressure 118/70 90/60 Blood Pressure Mean Blood Pressure Location Left Arm Left Arm Blood Pressure Position Supine Sitting O2 Sat by Pulse Oximetry Oxygen Delivery Method Telemetry Type Remote Telemetry Telemetry Monitoring Continues Irregular Telemetry Rate (Approximate) 100-110 BPM Telemetry Heart Rate 104 H EKG MO Interval 0.08 L EKG QRS Interval 0.[address] 09/19/24 14:00 09/19/24 14:00 09/19/24 19:00 Temperature 97.9 F Temperature Source Temporal Artery Scan Pulse Rate 100 Respiratory Rate 19 Blood Pressure 125/70 Blood Pressure Mean 88 Blood Pressure Location Left Arm Blood Pressure Position Supine O2 Sat by Pulse Oximetry 99 Oxygen Delivery Method Room Air Room Air Telemetry Type Remote Telemetry Telemetry Monitoring Continues Irregular Telemetry Rate (Approximate) Telemetry Heart Rate 97 EKG MO Interval 0.15 EKG QRS Interval 0.05 L Telemetry Strip Reading SR 09/19/24 20:00 09/19/24 20:00 09/19/24 22:00 Temperature 97.8 F Temperature Source Temporal Artery Scan Pulse Rate 100 Respiratory Rate 20 20 Blood Pressure 143/82 H Blood Pressure Mean 102 Blood Pressure Location Right Arm Blood Pressure Position Supine O2 Sat by Pulse Oximetry 93 L 94 L Oxygen Delivery Method Room Air Room Air Room Air Telemetry Type Telemetry Monitoring Irregular Telemetry Rate (Approximate) Telemetry Heart Rate EKG MO Interval EKG QRS Interval Telemetry Strip Reading 09/20/24 01:00 09/20/24 05:24 09/20/24 05:40 Temperature 98.2 F Temperature Source Temporal Artery Scan Pulse Rate 96 Respiratory Rate 20 Blood Pressure 134/71 Blood Pressure Mean 92 Blood Pressure Location Right Arm Blood Pressure Position Supine O2 Sat by Pulse Oximetry 95 94 L Oxygen Delivery Method Room Air Room Air Telemetry Type Remote Telemetry Telemetry Monitoring Continues Irregular Telemetry Rate (Approximate) Telemetry Heart Rate 99 EKG MO Interval 0.15 EKG QRS Interval 0.04 L Telemetry Strip Reading SR 09/20/24 07:00 09/20/24 07:43 09/20/24 10:00 Temperature Temperature Source Pulse Rate Respiratory Rate Blood Pressure Blood Pressure Mean Blood Pressure Location Blood Pressure Position O2 Sat by Pulse Oximetry 94 L Oxygen Delivery Method Room Air Room Air Telemetry Type Remote Telemetry Telemetry Monitoring Continues Irregular Telemetry Rate (Approximate) 90-100 BPM Telemetry Heart Rate 96 EKG MO Interval 0.13 EKG QRS Interval 0.05 L Telemetry Strip Reading SR at 96bpm Lab Results Lab Results: Lab Results: Last 24 Hours 09/20/24 05:10 WBC 9.77 RBC 2.64 L Hgb 9.0 L Hct 27.6 L MCV 104.5 H MCH 34.1 H MCHC 32.6 RDW Coeff of Fermin 14.2 Plt Count 393 Immature Gran % (Auto) 0.4 Neut % (Auto) 94.9 H Lymph % (Auto) 3.0 L Mathews % (Auto) 1.6 Eos % (Auto) 0.0 Baso % (Auto) 0.1 Neut # (Auto) 9.3 H Lymph # (Auto) 0.3 L Mathews # (Auto) 0.2 L Eos # (Auto) 0.0 Baso # (Auto) 0.0 Immature Gran # (Auto) 0.0 Sodium 135.3 Potassium 4.94 Chloride 99.1 Carbon Dioxide 26.3 Anion Gap 14.84 BUN 31.0 H Creatinine 1.03 Estimated GFR (MDRD) 70.00 BUN/Creatinine Ratio 30.09 Glucose 148.6 H D Calcium 8.55 Total Bilirubin 0.21 AST 25.9 ALT 20.1 Alkaline Phosphatase 78.0 Total Protein 6.30 Albumin 3.23 L Globulin 3.07 Albumin/Globulin Ratio 1.05 Additional Comments Additional Comments: I have independently reviewed and interpreted the labs/EKGs/imaging ordered during this hospital stay. I have reviewed outside records that are available in our EMR that pertain to medical stay including imaging/notes/labs from previous visits. Active Medications Active Medications: Medications Generic Name Dose Route Start Last Admin Trade Name Freq PRN Reason Stop Dose Admin Acetaminophen 650 mg 09/15/24 21:54 Acetaminophen 325 Mg Tablet PO Q4H PRN Mild Pain Hydrocodone Bitart/Acetaminophen 0.5 tab 09/17/24 10:43 Hydrocodone Bit/Acetaminophen 5/325 Mg Tablet PO BID PRN Pain Albuterol/Ipratropium 3 ml 09/16/24 00:00 09/20/24 05:26 Ipratropium/Albuterol Vial.Neb NEB 3 ml RTQ6H TERESSA Administration Atorvastatin Calcium 20 mg 09/17/24 21:00 09/19/24 21:14 Atorvastatin Calcium 20 Mg Tablet PO 20 mg BEDTIME TERESSA Administration Budesonide/Formoterol Fumarate 2 puff 09/17/24 21:00 09/20/24 08:46 Budesonide/Formoterol Fumarate 160/4.5 Mcg Inhaler IH 2 puff BID TERESSA Administration Cefuroxime Axetil 200 mg 09/18/24 21:00 09/20/24 08:50 Cefpodoxime Proxetil 200 Mg Tablet PO 09/22/24 09:01 200 mg Q12HR TERESSA Administration Cyclobenzaprine HCl 10 mg 09/17/24 10:43 Cyclobenzaprine Hcl 10 Mg Tablet PO 2XD PRN Spasms Famotidine 20 mg 09/20/24 08:20 09/20/24 08:50 Famotidine 20 Mg Tablet PO 20 mg BIDAC2 TERESSA Administration Latanoprost 1 drop 09/17/24 17:00 09/19/24 17:49 Latanoprost 2.5 Ml Opth Sarah EACHEYE Not Given QPM TERESSA Methylprednisolone Sodium Succinate 40 mg 09/19/24 17:00 09/20/24 08:48 Methylprednisolone Sod Succ/Pf 40 Mg/Ml Vial IVP 40 mg Q12HR TERESSA Administration Metoclopramide HCl 5 mg 09/20/24 08:21 09/20/24 08:46 Metoclopramide Hcl 10 Mg/2 Ml IVP 5 mg Q6HR PRN Administration nausea Ondansetron HCl 4 mg 09/19/24 20:52 09/20/24 05:21 Ondansetron Hcl/Pf 4 Mg/2 Ml Sdv IVP 4 mg Q6H PRN Administration Nausea / Vomiting Pantoprazole Sodium 40 mg 09/20/24 09:00 09/20/24 08:49 Pantoprazole Sodium 40 Mg Vial IVP 40 mg DAILY TERESSA Administration Sodium Chloride 1 syr 09/19/24 13:00 09/20/24 05:21 0.9% Sodium Chloride 10 Ml Disp.Syrin IVF 1 syr Q8HR TERESSA Administration Tiotropium [place] 1 cap 09/17/24 11:30 09/20/24 08:46 Tiotropium [place] 18 Mcg Cap.W.Dev IH 1 cap DAILY TERESSA Administration Plan Plan: 1. Acute Hypoxic Respiratory Failure in setting of COPD Exacerbation - Resolved, off of oxygen, nebs prn 2. Acute COPD Exacerbation - Improving, finish PO abx, IV steroids, nebs, still SOB with exertion. CTA ruled out PE. 3. Sepsis - Ruled out, blood cultures neg x 48 hours, procal trending down 4. Lactic acidosis - trended down, based on description of episode questionable if patient had seizure 5. EVELYN - Resolved, stop fluids 6. Adenocarcinoma of the prostate - refused treatment, follows with Dr. Ramirez at [facility], experiencing urinary retention >400 in bladder post void, anchor Ashley de la o to follow 7. Weakness and debility - PT/OT 8. HLD - chronic, continue home medications 9. Malnourishment, BMI 13 - varitype operator consult 10. Orthostatic hypotension - Pt systolic dropped 28 points yesterday, likely contributing to his dizziness. 1L fluid total given. Will recheck today if his nausea improved. Echo ordered as well as he's getting tachycardic while eating meals. Dispo: Awaiting acceptance from [facility]. Also patient is considering a hospice consult, renal social worker is [facility]. PATIENT DOES NOT CURRENTLY HAVE A SAFE DISCHARGE PLAN. Also of note, a MMSE was performed on the patient and he scored a 29/30, only missing today's date as he thought it was maybe 09/22 instead of 09/20. Review Statement Review Statement: I have personally discussed and reviewed the patient's visit/currently labs/imaging/decision making with Dr. French, my supervising attending. Greater that 50 minutes spent with patient, 50% of the time spent with this patient was devoted to counseling and coordination of care.
--- NOTE | 2024-09-20 12:50 | ECHO2D ---
Date of Exam: 09/20/2024 Ordering Physician: HOSPITALIST--PATRICK Room #: 115 Reason for Echo: DIZZINESS, WEAKNESS, HTN, DYSLIPIDEMIA, COPD, WEIGHT LOSS M-Mode Normal Adult Results LV Dimensions Normal Adult Results AoV Opening excursions >1.6 >1.6 LVEDD-base- 3.5-5.8 3.4 Ao root dimensions 2.0-3.7 3.7 LVESD-base- 3.1-4.6 L. Atrium dimensions 1.9-3.8 3.7 Post. Wall thickness 0.8-1.1 1.1 IV septum (thickness) 0.7-1.2 1.3 Post. Wall excursion 0.72-1.3 NORMAL Septal motion NORMAL Systolic motion R. Ventricular cavity 1.5-2.0 3.5 LVEF 60% >60% Paradoxical septal wall motion NORMAL [] 2-D : 2-D M Mode Echocardiogram was performed using apical four chamber and left parasternal long and short axis views. Mitral, tricuspid and aortic valves appear to be normal. Contractility of the left ventricle seems to be normal, so is the cavity size. Left atrial cavity size and aortic root appear to be normal. ENLARGED RIGHT VENTRICLE AND RIGHT ATRIAL CAVITIES. There is no pericardial effusion. There is no thrombus noted in the left ventricle or left atrial cavity. M-MODE: MV: NORMAL AV: NORMAL TV: NORMAL PV: CHAMBER SIZE: ENLARGED RIGHT VENTRICLE AND RIGHT ATRIAL CAVITIES WALL MOTION: NORMAL PERICARDIUM: NORMAL INTERPRETATION: 1. BORDERLINE LEFT VENTRICLE HYPERTROPHY 2. ENLARGED RIGHT VENTRICLE AND RIGHT ATRIAL CAVITIES 3. NORMAL LEFT VENTRICLE SIZE AND LEFT VENTRICLE CONTRACTILITY 4. NORMAL VALVES MTDD
[2024-09-21 05:37] LABS: BASOPHILS % (AUTO) 0.1 % (0.0-3.0); HEMATOCRIT 28.8 % (42.0-52.0); HEMOGLOBIN 9.4 g/dl (14.0-18.0); IMMATURE GRANULOCYTE # (AUTO) 0.1 (0.0-1.0); IMMATURE GRANULOCYTE % (AUTO) 0.5 % (0.0-5.0); LYMPHOCYTES # (AUTO) 0.5 K/uL (0.60-3.4); LYMPHOCYTES % (AUTO) 2.9 (10.0-50.0); MEAN CORPUSCULAR HEMOGLOBIN 33.9 pg (27.0-31.0); MEAN CORPUSCULAR HGB CONC 32.6 (31.8-35.4); MONOCYTES # (AUTO) 0.6 K/uL (0.4-2.0); MONOCYTES % (AUTO) 3.7 (0-10); NEUTROPHILS # (AUTO) 16.2 K/ul (2.0-6.9); NEUTROPHILS % (AUTO) 92.8 % (42.2-75.2); PLATELET COUNT 446 10^3/uL (140-440); RDW COEFFICIENT OF VARIATION 14.1 % (11.6-14.8); RED BLOOD COUNT 2.77 10^6/ul (4.70-6.10); WHITE BLOOD COUNT 17.48 K/ul (4.2-10.2)
[2024-09-21 05:51] LABS: ALBUMIN 3.3 g/dL (3.5-5.0); BILIRUBIN,TOTAL 0.4 mg/dL (0.2-1.3); CALCIUM 8.8 mg/dL (8.4-10.2); POTASSIUM 4.4 mmol/L (3.5-5.1); TOTAL PROTEIN 6.4 g/dL (6.3-8.2)
--- NOTE | 2024-09-21 11:20 | PCM.PROG ---
Date/Time Seen Date Seen by Provider: 09/21/24 Time Seen by Provider: 08:40 Provider Provider[facility] Chief Complaint Chief Complaint: COPD EXACERBATION Subjective Subjective: Patient is feeling somewhat better today, was able to eat some eggs and maciel this morning and keep it down. Still feels nauseated. No abd pain. No issues with BMs. Still gets SOB with exertion. At times tachycardic with exertion. We discussed again in great length goals of care. He decided yesterday he wanted a hospice referral. He is still consistent today in wanting hospice and to only focus on his comfort going forward. We discussed whether or not he would want to be sent to ER or hospitalized for acute issues going forward and at this time he says he would not. Objective Appearance: Positive No Apparent Distress, Alert and Oriented x3, Thin and Cachectic Chest/Lungs: Positive Clear to Auscultation Bilaterally and Other (diminished dread ); Negative Rales, Rhonci or Wheezes Heart: Positive RRR GI/: Positive Soft, Nontender, Bowel Sounds Normal and No Distention Neurological: Positive Cranial Nerves Intact, Alert, Oriented and Other (+generalized weakness, unsteady, deconditioned ) Vital Signs Vital Signs: Vital Signs: Last 24 Hours 09/20/24 13:00 09/20/24 13:57 09/20/24 14:00 Temperature 98.4 F Temperature Source Temporal Artery Scan Pulse Rate 83 Respiratory Rate 19 Blood Pressure 138/78 Blood Pressure Mean 98 Blood Pressure Location Left Arm Blood Pressure Position Supine O2 Sat by Pulse Oximetry 100 Oxygen Delivery Method Room Air Room Air Telemetry Type Remote Telemetry Telemetry Monitoring Continues Irregular Telemetry Rate (Approximate) 70-80 BPM Telemetry Heart Rate 77 EKG DC Interval 0.13 EKG QRS Interval 0.06 Telemetry Strip Reading SR 09/20/24 19:00 09/20/24 19:30 09/20/24 20:00 Temperature Temperature Source Pulse Rate Respiratory Rate 18 Blood Pressure Blood Pressure Mean Blood Pressure Location Blood Pressure Position O2 Sat by Pulse Oximetry Oxygen Delivery Method Room Air Room Air Telemetry Type Remote Telemetry Telemetry Monitoring Continues Irregular Telemetry Rate (Approximate) Telemetry Heart Rate 103 H EKG DC Interval 0.16 EKG QRS Interval 0.05 L Telemetry Strip Reading ST 09/20/24 21:41 09/21/24 01:00 09/21/24 04:54 Temperature 98.2 F Temperature Source Oral Pulse Rate 83 Respiratory Rate 18 Blood Pressure 147/81 H Blood Pressure Mean 103 Blood Pressure Location Left Arm Blood Pressure Position Supine O2 Sat by Pulse Oximetry 96 96 Oxygen Delivery Method Room Air Room Air Telemetry Type Remote Telemetry Telemetry Monitoring Continues Irregular Telemetry Rate (Approximate) Telemetry Heart Rate 100 EKG DC Interval 0.16 EKG QRS Interval 0.06 Telemetry Strip Reading 09/21/24 05:42 09/21/24 07:00 09/21/24 08:00 Temperature 98.2 F Temperature Source Temporal Artery Scan Pulse Rate 92 Respiratory Rate 20 Blood Pressure 147/90 H Blood Pressure Mean 109 Blood Pressure Location Left Arm Blood Pressure Position Supine O2 Sat by Pulse Oximetry 96 Oxygen Delivery Method Room Air Room Air Telemetry Type Remote Telemetry Telemetry Monitoring Continues Irregular Telemetry Rate (Approximate) 80-90 BPM Telemetry Heart Rate 83 EKG DC Interval 0.14 EKG QRS Interval 0.08 Telemetry Strip Reading 09/21/24 10:00 Temperature Temperature Source Pulse Rate Respiratory Rate Blood Pressure Blood Pressure Mean Blood Pressure Location Blood Pressure Position O2 Sat by Pulse Oximetry 95 Oxygen Delivery Method Nasal Cannula Telemetry Type Telemetry Monitoring Irregular Telemetry Rate (Approximate) Telemetry Heart Rate EKG DC Interval EKG QRS Interval Telemetry Strip Reading Lab Results Lab Results: Lab Results: Last 24 Hours 09/21/24 05:04 WBC 17.48 H D RBC 2.77 L Hgb 9.4 L Hct 28.8 L MCV 104.0 H MCH 33.9 H MCHC 32.6 RDW Coeff of Fermin 14.1 Plt Count 446 H Immature Gran % (Auto) 0.5 Neut % (Auto) 92.8 H Lymph % (Auto) 2.9 L Keith % (Auto) 3.7 Eos % (Auto) 0.0 Baso % (Auto) 0.1 Neut # (Auto) 16.2 H Lymph # (Auto) 0.5 L Keith # (Auto) 0.6 Eos # (Auto) 0.0 Baso # (Auto) 0.0 Immature Gran # (Auto) 0.1 Sodium 129.0 L Potassium 4.40 Chloride 100.0 Carbon Dioxide 23.0 Anion Gap 10.40 BUN 28.0 H Creatinine 1.00 Estimated GFR (MDRD) 72.00 BUN/Creatinine Ratio 28.00 Glucose 114.0 H Calcium 8.80 Total Bilirubin 0.40 AST 22.0 ALT 20.0 Alkaline Phosphatase 72.0 Total Protein 6.40 Albumin 3.30 L Globulin 3.10 Albumin/Globulin Ratio 1.06 Additional Comments Additional Comments: I have independently reviewed and interpreted the labs/EKGs/imaging ordered during this hospital stay. I have reviewed outside records that are available in our EMR that pertain to medical stay including imaging/notes/labs from previous visits. Active Medications Active Medications: Medications Generic Name Dose Route Start Last Admin Trade Name Freq PRN Reason Stop Dose Admin Acetaminophen 650 mg 09/15/24 21:54 Acetaminophen 325 Mg Tablet PO Q4H PRN Mild Pain Hydrocodone Bitart/Acetaminophen 0.5 tab 09/17/24 10:43 Hydrocodone Bit/Acetaminophen 5/325 Mg Tablet PO BID PRN Pain Albuterol/Ipratropium 3 ml 09/16/24 00:00 09/21/24 04:55 Ipratropium/Albuterol Vial.Neb NEB 3 ml RTQ6H TERESSA Administration Atorvastatin Calcium 20 mg 09/17/24 21:00 09/20/24 20:25 Atorvastatin Calcium 20 Mg Tablet PO 20 mg BEDTIME TERESSA Administration Budesonide/Formoterol Fumarate 2 puff 09/17/24 21:00 09/21/24 08:59 Budesonide/Formoterol Fumarate 160/4.5 Mcg Inhaler IH 2 puff BID TERESSA Administration Cefuroxime Axetil 200 mg 09/18/24 21:00 09/21/24 08:59 Cefpodoxime Proxetil 200 Mg Tablet PO 09/22/24 09:01 200 mg Q12HR TERESSA Administration Cyclobenzaprine HCl 10 mg 09/17/24 10:43 Cyclobenzaprine Hcl 10 Mg Tablet PO 2XD PRN Spasms Famotidine 20 mg 09/20/24 08:20 09/21/24 05:26 Famotidine 20 Mg Tablet PO 20 mg BIDAC2 TERESSA Administration Latanoprost 1 drop 09/17/24 17:00 09/20/24 17:05 Latanoprost 2.5 Ml Opth Sarah EACHEYE Not Given QPM TERESSA Methylprednisolone Sodium Succinate 40 mg 09/19/24 17:00 09/21/24 08:59 Methylprednisolone Sod Succ/Pf 40 Mg/Ml Vial IVP 40 mg Q12HR TERESSA Administration Metoclopramide HCl 5 mg 09/20/24 08:21 09/20/24 17:07 Metoclopramide Hcl 10 Mg/2 Ml IVP 5 mg Q6HR PRN Administration nausea Ondansetron HCl 4 mg 09/19/24 20:52 09/20/24 19:37 Ondansetron Hcl/Pf 4 Mg/2 Ml Sdv IVP 4 mg Q6H PRN Administration Nausea / Vomiting Pantoprazole Sodium 40 mg 09/20/24 09:00 09/21/24 08:59 Pantoprazole Sodium 40 Mg Vial IVP 40 mg DAILY TERESSA Administration Sodium Chloride 1 syr 09/19/24 13:00 09/21/24 05:26 0.9% Sodium Chloride 10 Ml Disp.Syrin IVF 1 syr Q8HR TERESSA Administration Tiotropium [place]ham 1 cap 09/17/24 11:30 09/21/24 08:59 Tiotropium [place] 18 Mcg Cap.W.Dev IH 1 cap DAILY TERESSA Administration Plan Plan: 1. Acute Hypoxic Respiratory Failure in setting of COPD Exacerbation - Resolved, off of oxygen, nebs prn 2. Acute COPD Exacerbation - Improving, nebs prn, still SOB with exertion. CTA ruled out PE. Will stop abx/steroids. 3. Sepsis - Ruled out, blood cultures neg x 48 hours, procal trending down 4. EVELYN - Resolved 5. Orthostatic hypotension - Patient was given fluid bolus on 09/20, he since has not complained of dizziness. 6. Failure to thrive with malnourishment, BMI 13.8- automatic equipment technician consult 7. Urinary retention - de la o placed over the weekend, draining well 8. 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 Ramirez outpatient and [place] [facility]. No treatment at this time. Per Dr. Quintero note, patient would likely not benefit from a quality of life standpoint with treatment. 9. Smoldering multiple myeloma - [facility], no treatment plan at this time 10. Nausea - Improved today. Continue antiemetics prn. Of note, a MMSE was performed on the patient on 09/20 and he scored a 29/30, only missing today's date as he thought it was maybe 09/22 instead of 09/20. Also of note, patient has changed his POA to his daughter Julia in the setting he cannot make decisions for himself. New forms have been filled out. Spoke with Dr. Jesse Tipton, Palliative Safe Deposit Clerk at the [place]. We had a lengthy discussion regarding patient's past medical history, acute issues requiring hospitalization, social factors, and patient's desires/goals of care. Appreciate her time. It was ultimately decided to approve hospice care with primary diagnosis of prostate cancer with bone mets, secondary diagnosis of failure to thrive. [facility] Dispo: Patient's discharge has been delayed due to requesting records, coordinating care with [facility], arranging safe dispo plan, etc. Review Statement Review Statement: I have personally discussed and reviewed the patient's visit/currently labs/imaging/decision making with Dr. French, my supervising attending. Greater that 50 minutes spent with patient, 50% of the time spent with this patient was devoted to counseling and coordination of care.
[2024-09-21] MEDS: SODIUM CHLORIDE 1,000 ML IV ONE (12:57)
[2024-09-21 14:35] VITALS: TEMP 97.6
[2024-09-22 05:47] LABS: ALANINE AMINOTRANSFERASE 20.3 U/L (0-50); ALBUMIN 3.13 g/dL (3.5-5.0); ALKALINE PHOSPHATASE 66.2 U/L (56-119); ASPARTATE AMINO TRANSFERASE 26.1 U/L (17-59); BILIRUBIN,TOTAL 0.39 mg/dL (0.2-1.3); BLOOD UREA NITROGEN 34.6 mg/dL (9-20); CALCIUM 8.7 mg/dL (8.4-10.2); CARBON DIOXIDE 21.5 mmol/L (22-30.0); CHLORIDE 100.7 mmol/L (98-107); CREATININE 1.03 mg/dL (0.60-1.10); GLUCOSE 110.3 mg/dL (74-106); HEMATOCRIT 28.4 % (42.0-52.0); HEMOGLOBIN 9.3 g/dl (14.0-18.0); MEAN CORPUSCULAR HEMOGLOBIN 34.4 pg (27.0-31.0); MEAN CORPUSCULAR HGB CONC 32.7 (31.8-35.4); MEAN CORPUSCULAR VOLUME 105.2 fl (80.0-94.0); PLATELET COUNT 422 10^3/uL (140-440); POTASSIUM 4.83 mmol/L (3.5-5.1); RDW COEFFICIENT OF VARIATION 14.4 % (11.6-14.8); SODIUM 132.3 mmol/L (134.5-145); TOTAL PROTEIN 6.14 g/dL (6.3-8.2); WHITE BLOOD COUNT 10.92 K/ul (4.2-10.2)
[2024-09-22 05:48] LABS: ANISOCYTOSIS NOT PRESENT (NOT PRESENT)
[2024-09-22 07:53] VITALS: RESP 16
--- NOTE | 2024-09-22 12:23 | DCSUM ---
Admission Date Admission Date: 09/15/24 Discharge Date Discharge Date: 09/22/24 Admission Diagnosis Admission Diagnosis: 1. Acute Hypoxic Respiratory Failure in setting of COPD Exacerbation 2. Acute COPD Exacerbation 3. Sepsis 4. EVELYN Discharge Diagnosis Discharge Diagnosis: 1. Acute Hypoxic Respiratory Failure in setting of COPD Exacerbation - Resolved 2. Acute COPD Exacerbation - resolved 3. Sepsis - Ruled out 4. EVELYN - Resolved 5. Orthostatic hypotension - improved 6. Failure to thrive with malnourishment, BMI 13.8 7. Urinary retention - de la o placed 8. 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 Smoldering multiple myeloma - Diagn[facility] 10. Nausea - Improved today. Continue antiemetics prn. Hospital Provider Hospital Provider: OLGA AD[facility]-C[facility] Primary Care Physician Primary Care Physician: YAIR CRAFT PA-C Summary of History and Physical Summary of History and Physical: 79 yo male with pmh of CVA, prostate cancer, HLD, COPD, GERD, and macular degeneration presented to the ER for weakness and shortness of breath. Patient reports that he resides at his daughter's house and was taking a shower when he developed sudden onset of weakness, vision changes, and shortness of breath. Also states he had the urge to have a BM. Got out of the shower and was sitting on the toilet, then felt too weak and couldn't breathe. He then got down on all 4 extremities in the floor and this did not help and was unable to get back up. Upon arrival to the ER by EMS, patient was on NRB and O2 sat was found to be in the 70s, HR 126, and Respirations 26. Ddimer was found to be >4000, Creatinine elevated at 1.3 compared to baseline of 0.8-1.1, WBC 13, lactic of 8. Chest xray negative for acute findings. Blood cultures were not obtained, CTA not completed, and CT head not completed. Initially admitted to med/surg observation. Patient is requesting placement due to family being unable to care for him 01/12. Discussed with social media marketing analyst at bedside. Requesting [facility] specificially. Hospital Course Subjective: CT head was negative. CTA ruled out PE. Patient was treated with steroids and antibiotics for COPD exacerbation. He was weaned to room air. He has continued to have some dyspnea with exertion. Over the weekend he had urinary retention and a De La O was placed. It has since drained well. Initially the plan was to try to do skilled rehab however that was denied by his insurance. Echo obtained which was overall unremarkable. Patient has been mildly orthostatic and received fluids for that. Ultimately the patient after much consideration decided he would like to pursue hospice care. We discussed at multiple times and in depth. He does not want to receive any treatment for his chronic conditions such as prostate cancer but also we discussed whether or not he even wants to return to the ER or be hospitalized in the future and at this time he says he does not. He just does not want to be in pain or left to be short of breath. Given his age, comorbidities, and goals of care hospice is appropriate. New POLST form signed out showing DNR comfort measures only. Arrangements have been made with [facility] and the [place] for hospice care. [facility] will be meeting him there. He has had some nausea on and off the last several days treated with Zofran and Protonix. Will continue these for now. Discussed with him hospice may have a different care plan for him. Patient made several claims specifically against his son-in-law Nato regarding the care he was receiving at home. He stated that he was confined to mostly 1 room with some bathroom privileges and able to sit at the table but not go into the living room or other parts of the home. He states he on average was given 1 meal a day. He states that he was treated very poorly. Due to this [employer] was contacted and case was filed. The patient decided to also change his POA from the son-in-law to his other daughter Julia. New paperwork was filled out for that as well. A Mini-Mental status exam was also performed and he scored a 29 out of 30 on that. He was felt to be able to make his own decisions during this hospital stay. Patient discharged in stable condition. Appearance: Pleasant, No Apparent Distress, Alert and Other (frail, cachectic ) HEENT: Supple CVS: Other (RRR) Abdomen: Soft, Non-Tender and No Distention Respiratory: No Accessory Muscle Use Extremities: No Edema Vital Signs: Most Recent Vital Signs Temperature 97.6 F 09/21/24 20:23 Temperature Source Temporal Artery Scan 09/21/24 20:23 Temperature Source Infrared 09/15/24 16:46 Pulse Rate 92 09/22/24 07:39 Respiratory Rate 16 09/22/24 07:39 Blood Pressure 142/72 H 09/21/24 20:23 Blood Pressure Mean 95 09/21/24 20:23 Blood Pressure Left Arm 139/90 09/15/24 20:54 Blood Pressure Location Left Arm 09/21/24 20:23 Blood Pressure Position Supine 09/21/24 20:23 O2 Sat by Pulse Oximetry 97 09/22/24 10:00 Oxygen Delivery Method Room Air 09/22/24 10:00 Oxygen Flow Rate 2 09/17/24 20:51 Height 5 ft 9 in 09/19/24 08:54 Weight 42.3 kg 09/19/24 08:54 Telemetry Type Remote Telemetry 09/22/24 07:00 Telemetry Monitoring Continues 09/22/24 07:00 Irregular Telemetry Rate (Approximate) 90-100 BPM 09/21/24 13:00 Telemetry Heart Rate 90 09/22/24 07:00 EKG MI Interval 0.15 09/22/24 07:00 EKG QRS Interval 0.06 09/22/24 07:00 Telemetry Strip Reading NSR 09/22/24 07:00 Imaging: EXAM: CT OF THE BRAIN WITHOUT CONTRAST FINDINGS: There is moderate generalized cerebral involutional change. No acute intracranial hemorrhage, extra-axial fluid collection, hydrocephalus, mass effect, or midline shift. The ventricles, cisterns and sulci are normal. Castro- white differentiation is maintained. There are moderate patchy areas of hypodensity in the periventricular white matter, nonspecific but most commonly encountered in the setting of chronic microvascular disease. The visualized paranasal sinuses and mastoid air cells are clear. The visualized portions of the globes and orbits appear normal. No acute calvarial abnormalities are seen. IMPRESSION: 1. No acute intracranial abnormality. 2. Involutional change of the brain and suspected sequelae of microvascular disease. EXAM: CTA OF THE PULMONARY ARTERIES WITH CONTRAST FINDINGS: Pulmonary arteries: No pulmonary embolus detected. Lungs/pleura: Diffuse emphysematous changes. Pulmonary micronodule measuring 7.2 mm in the right lower lobe. Appears stable compared to a previous examination. A smaller micronodule measuring approximately 4 mm image 101 is also stable. Subpleural micronodule in the left upper lobe is stable in the interval. No pleural effusion.Atelectasis left lung base. Mediastinum: No adenopathy. Cardiovascular: No pericardial effusion. The ascending thoracic aorta measures up to 3.2 cm. Descending aorta is 3 cm. Chest wall/axillae/thoracic inlet: No mass or adenopathy. Imaged upper abdomen: Postoperative change from endovascular stent repair of an infrarenal abdominal aortic aneurysm. Renal cyst on the left. Mildly distended gallbladder. Adrenal hyperplasia bilaterally. Bones: No aggressive osseous lesion identified. IMPRESSION: 1. Emphysematous changes. 2. Stable pulmonary micronodules 3. Negative for pulmonary embolus. 4. Additional chronic changes as above. EXAM: FRONTAL VIEW OF THE CHEST FINDINGS: Lungs are hyperexpanded. Calcified granulomas are present on the right. Nodular like density over the anterior fifth rib which is indeterminate for calcification versus noncalcified nodule. Cardiac silhouette is normal. No organized infiltrate/consolidation. No visible effusion or pneumothorax. No acute osseous abnormality. IMPRESSION: 1. Emphysematous changes 2. Nodular opacities on the right at least one which is a granuloma. The second is indeterminate EXAM: LUMBAR SPINE TWO VIEW. FINDINGS/IMPRESSION: Degenerative disc narrowing most prominent L5-S1. Lesser disc space narrowing at L2-3, L3-4 and L4-5. Endovascular stent graft is present over the aorta and iliac arteries. Facet arthropathy is present. No acute fracture. Date of Exam: 09/20/2024Ordering Physician: NORAIST--PATRICK Room #: 115 Reason for Echo: DIZZINESS, WEAKNESS, HTN, DYSLIPIDEMIA, COPD, WEIGHT LOSS M-Mode Normal Adult Results LV Dimensions Normal Adult Results AoV Opening excursions >1.6 >1.6 LVEDD-base- 3.5-5.8 3.4 Ao root dimensions 2.0-3.7 3.7 LVESD-base- 3.1-4.6 L. Atrium dimensions 1.9-3.8 3.7 Post. Wall thickness 0.8-1.1 1.1 IV septum (thickness) 0.7-1.2 1.3 Post. Wall excursion 0.72-1.3 NORMAL Septal motion NORMAL Systolic motion R. Ventricular cavity 1.5-2.0 3.5 LVEF 60% >60% Paradoxical septal wall motion NORMAL [] 2-D : 2-D M Mode Echocardiogram was performed using apical four chamber and left parasternal long and short axis views. Mitral, tricuspid and aortic valves appear to be normal. Contractility of the left ventricle seems to be normal, so is the cavity size. Left atrial cavity size and aortic root appear to be normal. ENLARGED RIGHT VENTRICLE AND RIGHT ATRIAL CAVITIES. There is no pericardial effusion. There is no thrombus noted in the left ventricle or left atrial cavity. M-MODE: MV: NORMAL AV: NORMAL TV: NORMAL PV: CHAMBER SIZE: ENLARGED RIGHT VENTRICLE AND RIGHT ATRIAL CAVITIES WALL MOTION: NORMAL PERICARDIUM: NORMAL INTERPRETATION: 1. BORDERLINE LEFT VENTRICLE HYPERTROPHY 2. ENLARGED RIGHT VENTRICLE AND RIGHT ATRIAL CAVITIES 3. NORMAL LEFT VENTRICLE SIZE AND LEFT VENTRICLE CONTRACTILITY 4. NORMAL VALVES Lab Results Last 24 Hours: 09/22/24 05:17 WBC 10.92 H D RBC 2.70 L Hgb 9.3 L Hct 28.4 L MCV 105.2 H MCH 34.4 H MCHC 32.7 RDW Coeff of Fermin 14.4 Plt Count 422 Neutrophils % (Manual) 86.0 H Band Neutrophils % 5.0 Lymphocytes % (Manual) 5.0 L Monocytes % (Manual) 4.0 Anisocytosis Not present Sodium 132.3 L Potassium 4.83 Chloride 100.7 Carbon Dioxide 21.5 L Anion Gap 14.93 BUN 34.6 H Creatinine 1.03 Estimated GFR (MDRD) 70.00 BUN/Creatinine Ratio 33.59 Glucose 110.3 H Calcium 8.70 Total Bilirubin 0.39 AST 26.1 ALT 20.3 Alkaline Phosphatase 66.2 Total Protein 6.14 L Albumin 3.13 L Globulin 3.01 Albumin/Globulin Ratio 1.03 Discharge Instructions Discharge Planning: Discharge Planning > [address] Des French. Discharge Medications: Medications at Discharge (Home Meds & RX) albuterol sulfate 90 mcg/actuation aerosol inhaler 2 puff inhalation Q4-6H PRN shortness of breath or wheezing #8.5 grams 12/15/23 atorvastatin 40 mg tablet 20 mg PO QHS 09/15/24 budesonide 160 mcg-glycopyr 9 mcg-formot 4.8 mcg/actuation HFA inhaler (Breztri Aerosphere) 2 inh inhalation BID 09/15/24 latanoprost 0.005 % eye drops 1 drp ophthalmic (eye) QPM 09/15/24 cyclobenzaprine 10 mg tablet 10 mg PO BID PRN muscle spasm #10 tabs 09/22/24 hydrocodone 5 mg-acetaminophen 325 mg tablet 0.5 tab PO BID PRN MODERATE PAIN #10 tabs 09/22/24 ipratropium 0.5 mg-albuterol 3 mg (2.5 mg base)/3 mL nebulization soln 3 ml NEB RTQ6H PRN SOB #90 mL 09/22/24 ondansetron 4 mg disintegrating tablet 4 mg PO Q6H PRN nausea and vomiting #14 tabs 09/22/24 pantoprazole 40 mg tablet,delayed release (Protonix) 40 mg PO DAILY #30 tabs Discharge Plan Discharge Discharge Orders: Discharge Patient (ONCE); Ordered 09/22/24 Ordered By: OLGA ADAMES Activity Restrictions/Additional Instructions: DISCHARGE TO [facility] PATIENT HAS CHOSEN HOSPICE CARE DIET: NORMAL WITH PROTEIN SHAKES ACTIVITY: FALL PRECAUTIONS Instructions: Urinary Retention in Men (GEN), COPD (Chronic Obstructive Pulmonary Disease) (DC) Care Plan Goals: Problem: Impaired Respiratory Status Goal: Exhibit optimal respiratory function Instructions: Activities as tolerated Apply oxygen as ordered Elevate head of bed Notify MD of increased congestion Problem: Risk for falls Goal: No falls or injury Instructions: Have no throw rugs on the floor Make sure pathway is clear of all objects Use assistance devices if applicable Patient Disposition: TRANSFER SNF Prescriptions: New ipratropium-albuterol 0.5 mg-3 mg(2.5 mg base)/3 mL Solution For Nebulization 3 ml NEB RTQ6H PRN (Reason: SOB) Qty: 90 0RF ondansetron 4 mg tablet,disintegrating 4 mg PO Q6H PRN (Reason: nausea and vomiting) Qty: 14 0RF pantoprazole [Protonix] 40 mg tablet,delayed release (DR/EC) 40 mg PO DAILY Qty: 30 0RF Continued albuterol sulfate 90 mcg/actuation HFA aerosol inhaler 2 puff inhalation Q4-6H PRN (Reason: shortness of breath or wheezing) Qty: 8.5 2RF Breztri Aerosphere 160-9-4.8 mcg/actuation HFA aerosol inhaler 2 inh inhalation BID latanoprost 0.005 % drops 1 drp ophthalmic (eye) QPM atorvastatin 40 mg tablet 20 mg PO QHS Changed cyclobenzaprine 10 mg tablet 10 mg PO BID PRN (Reason: muscle spasm) Qty: 10 0RF hydrocodone-acetaminophen 5-325 mg tablet 0.5 tab PO BID PRN (Reason: MODERATE PAIN) Qty: 10 0RF Discontinued albuterol sulfate 2.5 mg /3 mL (0.083 %) solution for nebulization 2.5 mg inhalation Q4-6H PRN (Reason: chronic bronchitis) Qty: 180 0RF PreserVision AREDS-2 250-90-40-1 mg capsule 1 tab PO BID Did you review [place] DECATING MACHINE OPERATOR for ALL controlled substances?: Not Applicable Discussed opioids are addictive and Narcan is available by prescription or from pharmacy.: No Condition: Stable
[2024-09-22 12:25] VITALS: BP 165/96; PULSE 102
== END 2024-09-22 13:50 | DRG 190 ==
LOC: ED 16:39 → OBSVTOIN 19:47 → MEDSURG B 20:00 → INTOOBSV 20:00 → MEDSURG B 20:52
PROVIDERS: ADMIT Hospitalist; ATTEND Physician Assistant